=== PATIENT | female | born 1935 | race Caucasian/White ===

== ENCOUNTER 2016-10-23 03:09 | Observation (INO) ==
[2016-10-23] MEDS ORDERED: Naloxone 0.4 MG/ML INJ IVP PRN (08:39)
[2016-10-23] MEDS ORDERED: Acetaminophen 325 MG TABLET PO PRN (08:39)
[2016-10-23 09:08] LABS: Basophils % 0.3 %; Eosinophils # 0.1 K/mcL (0.0-0.6); Eosinophils % 0.4 %; Hematocrit 32.5 % (35.3-44.9); Hemoglobin 10.1 g/dL (11.5-15.4); Immature Granulocytes % 0.6 % (0-4); Lymphocytes # 2.3 K/mcL (0.6-4.6); Lymphocytes % 18.1 %; Mean Corpuscular HGB Conc 31.1 g/dL (31.6-35.5); Mean Corpuscular Hemoglobin 25.8 pg (28.0-33.3); Mean Corpuscular Volume 83.1 fL (83.0-100.0); Mean Platelet Volume 11.1 fL (9.4-12.4); Monocytes # 1.2 K/mcL (0.0-1.3); Monocytes % 9.4 %; Platelet Count 246 K/mcL (140-400); Red Blood Count 3.91 M/mcL (3.82-4.97); Segmented Neutrophils % 71.2 %
[2016-10-23] MEDS ORDERED: 0.9 % Sodium Chloride 1,000 ML IVC SCH (09:15)
[2016-10-23 09:18] LABS: INR 1.1; Prothrombin Time 12.4 Seconds (9.4-12.1)
[2016-10-23 09:21] LABS: Activated Partial Thrombo Time 26.9 Seconds (26.0-36.0)
[2016-10-23 09:22] LABS: Albumin 2.6 g/dL (3.5-5.0); Albumin/Globulin Ratio 0.7 (1.1-2.2); Bilirubin,Total 0.5 mg/dL (0.2-1.2); Chol/HDL Ratio 3.8 (0-4.9); Globulin 3.7 g/dL (2.4-3.5); Magnesium 1.8 mg/dL (1.6-2.6); Phosphorous 3.3 mg/dL (2.3-4.7); Total Protein 6.3 g/dL (6.0-8.3)
--- NOTE | 2016-10-23 09:26 | Internal Med History&Physical ---
<HerreraDomingo - Last Filed: 10/23/16 11:50> Date of Encounter: 10/23/16 Time of Encounter: 07:30 Assessment and Plan (1) Stroke Current visit: Yes Status: Acute Assess: Mrs. Contreras is a 80 year old female who presents from [facility] in [facility] with chief complaint of right-sided weakness and possible stroke. Patient has a lengthy cardiac history consisting of 7 strokes, 1 NE, and triple bypass surgery with placement of two stents. Patient reports she has been experiencing right-sided weakness for the past week and when symptoms worsened her daughter took her to [facility] for evaluation. Hospital Hospital transfer took place today (10/23/16). Patient also states she occasionally has a feeling of pressure in her left arm that does not radiate to her neck. Mrs. Contreras also states she has been having double vision for the past 6 months. She reports occasional dizziness. Plan: DVT prophylaxis ordered Continue patient's aspirin therapy at 325 mg oral once a day Continuous cardiac monitoring ordered Continuous pulse oximetry ordered Monitor patient's vital signs Monitor patient for signs of neurological decline and/or stroke symptoms Qualifiers: CVA mechanism: unspecified Qualified Code(s): I63.9 - Cerebral infarction, unspecified (2) Generalized weakness Current visit: Yes Status: Acute Assess: Patient presents with chief complain of generalized weakness, primarily right- sided in nature due to possible stroke. She has history of several previous strokes. Plan: Bed rest ordered Falls precautions ordered Up with assist only ordered PT consult ordered OT consult ordered Certified Art Therapist consult ordered to evaluate patient's home status as she currently lives alone Monitor patient and patient's vital signs (3) Diabetes 1.5, managed as type 1 Current visit: Yes Status: Chronic Assess: Patient presents with chronic history of diabetes type 1. Plan: Blood glucose monitoring ordered Diabetic diet ordered Wound care ordered for decubitus ulcer located on patient's right ball of foot Hold patient's Glipizide Continue Lantus 50 units subcutaneous Correction scale low-dose ordered Hypoglycemia protocol ordered A1C ordered (4) Hypertension Current visit: Yes Status: Chronic Assess: Impression presents with chronic history of hypertension. Plan: Continue patient's aspirin therapy Continue patient's Lisinopril Continue patient's Norvasc Monitor patient's vital signs Qualifiers: Hypertension type: essential hypertension Qualified Code(s): I10 - Essential (primary) hypertension (5) Hyperlipemia Current visit: Yes Status: Chronic Assess: Patient presents with history of chronic hyperlipidemia. Plan: Continue patient's Atorvastatin Lipid panel ordered Qualifiers: Hyperlipidemia type: unspecified Qualified Code(s): E78.5 - Hyperlipidemia , unspecified (6) GERD (gastroesophageal reflux disease) Current visit: Yes Status: Chronic Assess: Patient presents with chronic history of gastroesophageal reflux disease. Plan: Protonix 40 mg IVP ordered due to contraindication of Prilosec and Clopidogrel Qualifiers: Esophagitis presence: without esophagitis Qualified Code(s): K21.9 - Gastro -esophageal reflux disease without esophagitis (7) Renal disease Current visit: No Status: Chronic Assess: Patient presents with history of chronic renal disease, stage IV (GFR=28). Plan: Renal diet ordered Nutrition consult ordered Continue Lasix Monitor I&O ordered (8) DVT prophylaxis Current visit: Yes Status: Acute Assess: Patient to be placed on DVT prophylaxis due to hx of CVA, bed rest, and inpatient status. Plan: Lovenox 30 mg SQ 0700 ordered due to reduced renal function Internal Medicine - H&P: HPI Chief complaint: Right-Sided Weakness/Possible Stroke Admitted From: Hospital to Hospital Transfer Plans for Post Hospital Care: Home History of present illness: Mrs. Contreras is a 80 year old female who presents from [facility] in [facility] with chief complaint of right-sided weakness and possible stroke. Patient has a lengthy cardiac history consisting of 7 strokes, 1 NE, and triple bypass surgery with placement of two stents. Patient reports she has been experiencing right-sided weakness for the past week and when symptoms worsened her daughter took her to [facility] for evaluation. Hospital Hospital transfer took place today (10/23/16). Patient also states she occasionally has a feeling of pressure in her left arm that does not radiate to her neck. Mrs. Contreras also states she has been having double vision for the past 6 months. She reports occasional dizziness but denies headaches, nausea, vomiting, presyncope, or syncopal episodes. Upon examination , patient exhibits generalized weakness bilaterally with noticeable and more prominent weakness of her right upper and lower extremities. Patient states she has fallen 12 times within the past year with the latest episode being 3 months ago. She states these are primarily caused by loss of balance. To Ben states she currently lives home alone and ambulates using a walker, cane, or 4 wheeled walker with hand brake. 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 Patient did not require chemotherapy or radiation. Mrs. Contreras will be admitted as observation with orders for stat EKG, CBC, carotid duplex imaging bilaterally, continuous cardiac monitoring, continuous pulse ox monitoring, continuation of her home meds. Consults for social media marketing manager, physical therapy, and occupational therapy have been placed. Patient to be monitored closely. Past Med Surg Social Fam HX - Past Medical History Source: patient Medical history: arthritis, cancer (Uterine), coronary artery disease, CVA, diabetes (Including diabetic neuropathy), hyperlipidemia, hypertension, renal disease (Stage IV (GFR=28)), other (Arthritis) Psychiatric history: anxiety, depression - Past Surgical History Surgical History: carotid endarterectomy (Left), cholecystectomy, coronary bypass (CABG) (Triple with placement of two stents), hysterectomy, orthopedic, other (Right foot x2), other (Tubal ligation) - Social History Smoking Status: Former smoker Smokeless Tobacco Status: No Alcohol use: none Drug use: none Occupational status: retired Current living situation: Home - Independent Activity Level: Independent ambulation, Uses cane/walker Recent Out of Country Travel Within the Last 8 Weeks: No Exposure or Possible Exposure to Illness During Travel: No - Family History Mother Race: Family Member Ethnicity: Non- Living Status: Age at : 60 Cause of : Cancer Hx Family Cancer: Yes Hx Family Endocrine Disorder: Yes (DM) Father Race: Family Member Ethnicity: Non- Living Status: Age at : 63 Cause of : NE Hx Family Cardiac Disorders: Yes (NE, HD) Brother Race: Family Member Ethnicity: Non- Living Status: Age at : 55 Cause of : NE Hx Family Cardiac Disorders: Yes (HD) Hx Family Cancer: Yes Sister Race: Family Member Ethnicity: Non- Living Status: Still Living Hx Family Endocrine Disorder: Yes (DM) Internal Medicine - H&P: Meds Amlodipine [Norvasc] 2.5 mg PO DAILY 10/23/16 [History] Atorvastatin Calcium [Lipitor] 80 mg PO DAILY 10/23/16 [History] Carvedilol [Coreg] 25 mg PO BID 10/23/16 [History] Clopidogrel [Plavix] 75 mg PO DAILY 10/23/16 [History] Furosemide [Lasix] 40 mg PO BID 10/23/16 [History] Gabapentin [Neurontin] 300 mg PO TID 10/23/16 [History] GlipiZIDE [Glipizide] 30 mg PO BID 10/23/16 [History] Insulin Glargine [Lantus] 50 units SQ HS 10/23/16 [History] Isosorbide MONOnitrate [Isosorbide Mononitrate] 30 mg PO DAILY 10/23/16 [History ] Lisinopril [Zestril] 10 mg PO BID 10/23/16 [History] Nitroglycerin [Nitrostat] 0.4 mg SL PRN PRN 10/23/16 [History] Nystatin Cream [Mycostatin Cream] 1 appl TP TID 10/23/16 [History] Omeprazole [PriLOSEC] 20 mg PO DAILY 10/23/16 [History] Allergies codeine Allergy (Verified 10/23/16 08:48) See Comments Erythromycin Base Allergy (Verified 10/23/16 08:48) See Comments All Systems PM: A 10-system review of systems was performed and is negative for pertinent findings except as documented above in the HPI. - Constitutional Constitutional: as per HPI, falls, weakness (Generalized with prominence on right side) - EENT Eyes: as per HPI, other visual disturbances (Patient reports double vision over past 6 months) Ears: no ear discharge, no ear pain, no tinnitus Nose, mouth and throat: no dysphagia, no nasal discharge, no neck pain, no sore throat - Breasts Breasts: as per HPI - Cardiovascular Cardiovascular ROS IM: no chest pain, no diaphoresis, no dyspnea, no lightheadedness, no palpitations, no syncope - Respiratory Respiratory: no cough, no dyspnea, no wheezing, no excessive phlegm production - Gastrointestinal Gastrointestinal: diarrhea (Patient reports every other BM as diarrhea), no abdominal pain, no hematemesis, no hematochezia, no melena, no nausea, no vomiting - Genitourinary Genitourinary: as per HPI, urinary incontinence, urinary urgency, no change in urinary stream, no dysuria, no flank pain, no hematuria Menstruation: as per HPI, post hysterectomy - Musculoskeletal Musculoskeletal ROS IM: as per HPI, muscle weakness - Integumentary Integumentary IM: skin ulcer (Decubitus ulcer approximately 1" on right ball of foot. Patient reports she has been receiving wound care for this. Wound contains black eschar but appears to be healing) - Neurological Neurological ROS: as per HPI, frequent falls, lack of coordination, memory loss (Patient reports memory loss due to multiple strokes), weakness - Psychiatric Psychiatric: anxiety (Patient reports being anxious from the loss of her 19 year -old grandson, son, and within the past year), depression (Patient reports being depressed from the loss of her 19 year-old grandson, son, and within the past year) - Endocrine Endocrine IM: as per HPI - Hematologic/Lymphatic Hematologic/Lymphatic: no easy bruising - Allergic/Immunologic Allergic/Immunologic: as per HPI - Constitutional Vitals: Temp Pulse Resp BP Pulse Ox 99.5 F 72 16 102/65 99 10/23/16 07:56 10/23/16 07:56 10/23/16 07:56 10/23/16 07:56 10/23/16 07:56 General appearance: Present: cooperative, A&O X 3, no acute distress, obese, answers questions appropriately - Head Head exam: Present: atraumatic, normocephalic - Eye Eye exam: Present: PERRL, conjuntiva pink, sclera anicteric Pupils: Present: PERRL - ENT ENT exam: Present: mucous membranes dry, normal exam, normal external ear exam - Neck Neck exam general surgery: Present: normal inspection, supple, trachea midline. Absent: lymphadenopathy - Respiratory Respiratory exam: Present: CTAB. Absent: accessory muscle use, rales, rhonchi, wheezes - Cardiovascular Cardiovascular exam: Present: RRR, +S1, +S2. Absent: diastolic murmur, gallop, rubs, systolic murmur - GI/Abdominal GI/Abdominal exam: Present: normal bowel sounds, soft, no peritoneal signs. Absent: distended, tenderness - Rectal Rectal exam: Present: deferred - Additional comments: exam deferred. - Extremities Exam Extremities exam: Present: normal capillary refill Additional comments: Patient has palpable pulses in upper and lower extremities with diminished pulses in lower extremities. - Back Exam Back exam: Present: normal inspection - Neurological Exam Neurological exam: Present: alert, oriented X3 Additional comments: Mrs. Contreras exhibits generalized weakness bilaterally of upper and lower extremities on neurological exam with noticeable strength deficit on right upper and lower extremity. - Psychiatric Psychiatric exam: Present: depressed, normal affect - Skin Skin exam: Present: dry, intact (With the exception of decubitus ulcer located on right ball of foot) Internal Med - H&P Results - Labs CBC & Chem 7: 10/23/16 08:59 10/23/16 08:59 Labs: Short CBC 10/23/16 Range/Units 08:59 WBC 12.6 H (4.3-11.1) K/mcL Hgb 10.1 L (11.5-15.4) g/dL Hct 32.5 L (35.3-44.9) % Plt Count 246 (140-400) K/mcL Neutrophils # 9.0 H (1.6-8.9) K/mcL - EKG Data -: EKG Interpreted by Myself EKG shows normal: sinus rhythm - EKG Data Prior EKG available for review: no EKG comments: 10/23/16 09:46 EKG taken at [facility] dated 10/23/16 shows sinus rhythm, LVH with secondary repolarization abnormality, inferior infarct (old), and anterior Q waves possibly due to LVH. - Diagnostic Studies CT scan - head Additional comments: CT of head without contrast taken at [facility] and dated 10/23/16 shows: Brain: Cerebral atrophy with compensatory dilation of the ventricles. Periventricular white matter hypoattenuation most likely reflects chronic small vessel ischemic change. No hemorrhage. Ventricles: See above Bones/joints: Unremarkable. No acute fracture. Soft tissues: Unremarkable. Sinuses: Unremarkable as visualized. No acute sinusitis. Mastoid air cells: Unremarkable as visualized. No mastoid effusion. Overall impression: No acute intracranial findings. <Roberto Asencio - Last Filed: 10/23/16 17:07> Date of Encounter: 10/23/16 Internal Medicine - H&P: HPI History of present illness: Ms. Contreras is a 80 year old female All Systems PM: A 10-system review of systems was performed and is negative for pertinent findings except as documented above in the HPI. - Constitutional Vitals: Temp Pulse Resp BP Pulse Ox 98.5 F 76 15 151/82 98 10/23/16 15:00 10/23/16 15:00 10/23/16 15:00 10/23/16 15:00 10/23/16 15:00 Internal Med - H&P Results - Labs CBC & Chem 7: 10/23/16 08:59 10/23/16 08:59 Labs: Short CBC 10/23/16 Range/Units 08:59 WBC 12.6 H (4.3-11.1) K/mcL Hgb 10.1 L (11.5-15.4) g/dL Hct 32.5 L (35.3-44.9) % Plt Count 246 (140-400) K/mcL Neutrophils # 9.0 H (1.6-8.9) K/mcL BMP 10/23/16 08:59 Sodium 139 Potassium 4.0 Chloride 104 Carbon Dioxide 27 BUN 40 H Creatinine 1.74 H Glucose 227 H Calcium 8.0 L Cardiac Enzymes 10/23/16 10/23/16 Range/Units 08:59 14:39 Troponin I 0.02 0.02 (0-0.03) ng/mL Liver Function 10/23/16 Range/Units 08:59 Total Bilirubin 0.5 (0.2-1.2) mg/dL AST 10 (5-34) Units/L ALT 7 (0-55) Units/L Alkaline Phosphatase 58 (38-126) Units/L Albumin 2.6 L (3.5-5.0) g/dL - Attending Attestation I examined this patient and my medical decision-making was reviewed with the Advanced Practice Nurse. I agree with the documented findings, disposition and treatment plan as described except to the extent set forth below. danielle seen and examined with the BRICKLAYER SEWER. 80 ur old woman brought to ED , transferred from [facility] for concern of b/l lower leg weakness , normally mobile on a 4 leg walker. weakness is chronic, has h/o multiple strokes in the past, since last few days there is worsening of the weakness more on the right leg. CT head is neg for any acute hemorrhage or infarct. she has no other focal neuro defecits and is relatively stable. Exam has 2/5 power on right leg and 3/5 on left leg with intact sensation. the weakness is probably an exacerbation of chronic weakness as a result of debilitation, mulitple co -morbids and decreased functional status. will order PT/OT consult for now, if worsenig neuro status, may consider MRI brain. danielle will need social work consult for HH at least as she refuses to go to rehab or NH.
[2016-10-23] MEDS ORDERED: Nitroglycerin 0.4 MG TAB.SUBL SL PRN (10:19)
[2016-10-23] MEDS ORDERED: *HR* Dextrose 50 % in Water (Syg) 50 ML SYRINGE IVP PRN (11:27)
[2016-10-23] MEDS ORDERED: Dextrose Gel 15 GM PO PRN ×2 (11:27)
[2016-10-23] MEDS ORDERED: D5% in Water 1,000 ML IVC PRN (11:27)
[2016-10-23] MEDS ORDERED: Insulin LISPRO 300 UNITS/3 ML VIAL SQ ONE (11:42)
[2016-10-23] MEDS: Insulin LISPRO 300 UNITS/3 ML VIAL SQ SCH ×3 (12:01→20:35)
[2016-10-23 13:10] LABS: Hemoglobin A1C 11.6 %
[2016-10-23] MEDS: Gabapentin 300 MG CAPSULE PO SCH ×2 (14:58→20:34)
[2016-10-23] MEDS: Nystatin Cream 15 GM TUBE TP SCH ×2 (14:59→21:48)
[2016-10-23 17:44] LABS: Bilirubin,Urine Negative (Negative); Blood,Urine Trace (Negative); Clarity,Urine Cloudy (Clear); Color,Urine Yellow (Yellow); Glucose,Urine (UA) 250 mg/dL (Normal); Ketones,Urine Negative (Negative); Leukocyte Esterase,Urine Moderate (Negative); Nitrite,Urine Negative (Negative); PH,Urine 5.5 pH Units (5.0-8.0); Protein,Urine Negative (Neg-Trace); Specific Gravity,Urine 1.019 (1.010-1.025); Urobilinogen,Urine Normal (Normal)
[2016-10-23 17:46] LABS: Hyaline Casts,Urine None Seen per lpf (None-Few); Squamous Epithelial Cell,Urine Many per lpf (None-Few); WBC,Urine 15-30 per hpf (0-3)
[2016-10-23 17:55] LABS: RBC,Urine 0-3 per hpf (0-3)
[2016-10-23 17:56] LABS: Bacteria,Urine Moderate per hpf (None-Few); Renal Epithelial Cells,Urine Few per hpf (None-Few)
--- NOTE | 2016-10-23 18:06 | Carotid Imaging Report ---
Carotid Duplex Patient Name:Mar Contreras Order Number:[id number] Procedure Date:10/23/2016 Date:8Age:80 yrs Gender:Female Location:[facility] Room #: 3B46 Benefit Director:Hector Chaney RDMARTINEZ Referring MD:Domingo Silverman, [employer] customer sales consultant:None Reading MD:Maxwell Paredes MD , FACS Primary Indications:History of strokes Risk Factors Yes/No Hypertension Yes Diabetes Yes Hypercholesterolemia Yes Hx of CVA Yes Impressions: Findings: Left carotid system is essentially normal. Findings: Right carotid system has nonstenotic plaque. Recommendations: After imaging the patient returned to their room. Findings Carotid Duplex: Right: The right proximal common carotid artery has a PSV of 73 cm/s and a EDV of 14 cm/s. The right mid common carotid artery has a PSV of 59 cm/s and a EDV of 11 cm/s. The right distal common carotid artery has a PSV of 72 cm/s and a EDV of 19 cm/s. There is nonstenotic plaque in the right bifurcation with a PSV of 60 cm/s and a EDV of 11 cm/s. There is smooth calcified plaque. There is nonstenotic plaque in the right proximal internal carotid artery with a PSV of 88 cm/s and a EDV of 25 cm/s. There is smooth calcified plaque. The right mid internal carotid artery has a PSV of 77 cm/s and a EDV of 28 cm/s. The right distal internal carotid artery has a PSV of 85 cm/s and a EDV of 27 cm/s. There is nonstenotic plaque in the right eca with a PSV of 103 cm/s and a EDV of 12 cm/s. The right vertebral artery has a PSV of 36 cm/s and a EDV of 6 cm/s. Left: The left proximal common carotid artery has a PSV of 86 cm/s and a EDV of 21 cm/s. The left mid common carotid artery has a PSV of 82 cm/s and a EDV of 19 cm/s. The left distal common carotid artery has a PSV of 68 cm/s and a EDV of 22 cm/s. The left bifurcation has a PSV of 58 cm/s and a EDV of 14 cm/s. The left proximal internal carotid artery has a PSV of 80 cm/s and a EDV of 23 cm/s. The left mid internal carotid artery has a PSV of 73 cm/s and a EDV of 24 cm/s. The left distal internal carotid artery has a PSV of 61 cm/s and a EDV of 23 cm/s. The left eca has a PSV of 90 cm/s and a EDV of 12 cm/s. The left vertebral artery has a PSV of 50 cm/s and a EDV of 21 cm/s. Carotid Results Right PSV EDV Assessment Proximal CCA 73 14 Normal Mid CCA 59 11 Normal Distal CCA 72 19 Normal Bifurcation 60 11 Non Stenotic Plaque Proximal ICA 88 25 Non Stenotic Plaque Mid ICA 77 28 Normal Distal ICA 85 27 Normal ECA 103 12 Non Stenotic Plaque Vertebral Artery 36 6 Normal Left PSV EDV Assessment Proximal CCA 86 21 Normal Mid CCA 82 19 Normal Distal CCA 68 22 Normal Bifurcation 58 14 Normal Proximal ICA 80 23 Normal Mid ICA 73 24 Normal Distal ICA 61 23 Normal ECA 90 12 Normal Vertebral Artery 50 21 Normal Ratio's Right ICA/CCA Ratio: 1.49 ICA/CCA Values: 88/59 Left ICA/CCA Ratio: 0.96 ICA/CCA Values: 80/82 Updated by Maxwell Paredes MD, FACS on 10/23/2016 5:58:49 PM Maxwell Paredes MD electronically signed on 10/23/2016 5:59:18 PM with status of Final
[2016-10-23] MEDS: Furosemide 40 MG TABLET PO SCH (20:33)
[2016-10-23] MEDS: Insulin DETEMIR 100 UNIT/ML X5UNITS SQ SCH (20:35)
[2016-10-23] MEDS ORDERED: INSULIN GLARGINE 50 UNIT SQ SCH (21:00)
[2016-10-23] MEDS: Ondansetron ODT 4 MG TAB.RAPDIS SL PRN (22:58)
[2016-10-24] MEDS ORDERED: *HR* Enoxaparin 30 MG/0.3 ML SYRINGE SQ SCH (07:00)
[2016-10-24] MEDS: Pantoprazole 40 MG VIAL IVP SCH (08:50)
[2016-10-24] MEDS: Insulin LISPRO 300 UNITS/3 ML VIAL SQ SCH ×4 (08:50→21:16)
[2016-10-24] MEDS: Nystatin Cream 15 GM TUBE TP SCH ×3 (08:51→21:15)
[2016-10-24] MEDS: Isosorbide MONOnitrate (24 HR) 30 MG TAB.ER.24H PO SCH (08:51)
[2016-10-24] MEDS: amLODIPine 5 MG TABLET PO SCH (08:51)
[2016-10-24] MEDS: Gabapentin 300 MG CAPSULE PO SCH ×3 (08:51→21:15)
[2016-10-24 09:01] LABS: Basophils # 0.1 K/mcL (0.0-0.2); Basophils % 0.5 %; Eosinophils # 0.2 K/mcL (0.0-0.6); Eosinophils % 1.6 %; Hematocrit 35.5 % (35.3-44.9); Hemoglobin 11.2 g/dL (11.5-15.4); Immature Granulocytes % 0.3 % (0-4); Immature Platelets 4.2 % (1.1-6.1); Lymphocytes # 2.2 K/mcL (0.6-4.6); Lymphocytes % 21.2 %; Mean Corpuscular HGB Conc 31.5 g/dL (31.6-35.5); Mean Corpuscular Hemoglobin 26.2 pg (28.0-33.3); Mean Corpuscular Volume 82.9 fL (83.0-100.0); Mean Platelet Volume 11.1 fL (9.4-12.4); Monocytes # 1.1 K/mcL (0.0-1.3); Monocytes % 10.4 %; Neutrophils # 6.9 K/mcL (1.6-8.9); Platelet Count 257 K/mcL (140-400); Red Blood Count 4.28 M/mcL (3.82-4.97)
[2016-10-24] MEDS: Furosemide 40 MG TABLET PO SCH ×2 (09:05→21:15)
[2016-10-24 09:11] LABS: Calcium 8.7 mg/dL (8.6-10.8); Potassium 4.4 mEq/L (3.5-4.5)
--- NOTE | 2016-10-24 18:32 | Internal Med Progress Note ---
Date of Encounter: 10/24/16 Time of Encounter: 09:40 - Assessment and plan (1) Generalized weakness Current Visit: Yes Status: Acute Assessment and plan: Patient was admitted through the emergency department yesterday from [facility] in [place] with chief complaint of right-sided weakness and possible stroke. Patient had lengthy cardiac history and also a history of 7 MIs. She reports that she has been explained to right-sided weakness for at least a week, her symptoms became worse yesterday. Patient also told ER staff that she occasionally has a feeling of pressure in her left arm that does not radiate to her neck. She says that she has been having double vision for the past 6 months and occasional dizziness. Patient is deconditioned, she lives at home alone. She has right lower extremity deficit from prior stroke and drags her leg behind her while she is using her walker. She has been seeing wound care for a wound on her foot from dragging. She said that she had a callus which she picked. Patient's labs are within normal limits. She also does not appear to have right-sided weakness. Her head CT was negative. And her carotids were negative and unremarkable. Her grasps are strong and equal bilaterally she is able to hold her leg up against resistance and is able to push her legs down to the bed against resistance. She is able to follow commands, her pupils are equal and reactive to light and accommodation. Her speech is clear her facial movements are symmetrical. She is able to move herself in the bed. Patient is being treated for urinary tract infection with Rocephin. This and deconditioning could very well be part of what is causing weakness. Urine cultures are pending. As recommended by physical therapy the patient go to rehabilitation for weakness. Patient is refusing an insistent that she goes home. Despite multiple transportation and level of functioning issues within the family, patient insists that she has enough support to stay home by herself. She does ambulate with a cane, however she drags her leg when she walks. She is incontinent of urine and unable to clean herself in the shower. She will be accepting of home health at this time. 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 Patient has contractures and deconditioning, does not appear to have neurological deficits from CVA. 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 Patient appears to be neurologically intact as stated above. DVT prophylaxis Aspirin 325 daily Continue cardiac monitoring Continue continuous pulse ox Monitor vital signs and patient condition. Qualifiers: CVA mechanism: unspecified Qualified Code(s): I63.9 - Cerebral infarction, unspecified (3) DVT prophylaxis Current Visit: Yes Status: Acute Assessment and plan: Lovenox subcutaneous daily. Patient also on Plavix. (4) Hypertension Current Visit: Yes Status: Chronic Assessment and plan: Chronic. Continue home medication. Monitor vital signs. Qualifiers: Hypertension type: essential hypertension Qualified Code(s): I10 - Essential (primary) hypertension (5) GERD (gastroesophageal reflux disease) Current Visit: Yes Status: Chronic Assessment and plan: Chronic. Continue home medications. Qualifiers: Esophagitis presence: without esophagitis Qualified Code(s): K21.9 - Gastro -esophageal reflux disease without esophagitis (6) Renal disease Current Visit: No Status: Chronic Assessment and plan: Chronic. Avoid NSAIDs. Avoid nephrotoxins. Monitor vital signs Creatinine 1.41. Improving from admission. (7) Hyperlipemia Current Visit: Yes Status: Chronic Assessment and plan: Chronic. Continue home medications. Within normal limits with current regimen Qualifiers: Hyperlipidemia type: unspecified Qualified Code(s): E78.5 - Hyperlipidemia , unspecified (8) UTI (urinary tract infection) Current Visit: Yes Status: Acute Assessment and plan: Patient is being treated for urinary tract infection. There is moderate bacteria and moderate leukocyte esterase. Patient is initially being treated with Rocephin 1 g every 24 hours IV until culture and sensitivity is available. 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 This is near baseline, however slightly decreased from prior. Sliding scale insulin Accu-Cheks before meals at bedtime Diabetic diet life educator - Time Spent With Patient less than 15 minutes - Subjective Interval history: Patient presented to the emergency room at [facility] in [place] yesterday with complaint of weakness. She reported that weakness is primarily on the right side. Today during evaluation, patient has no noticeable deficits. Her grasps were strong and equal, facial movements were symmetrical, she could lift and push her legs on and off the bed with and against resistance. Her foot press pole were strong and equal bilaterally ureters speech is clear, PERRLA, she is able to follow commands. It is been recommended by PT that patient go to rehabilitation for physical therapy. Patient is resistant. Social workers on board. Patient has many social needs such as she is incontinent and unable to care for herself at home, she does get Meals on Wheels but only Sunday through Sunday. She does seem to have neighbors who care for her and look out for her. - Constitutional Vitals: Temp Pulse Resp BP Pulse Ox 97.8 F 67 17 106/64 98 10/24/16 14:57 10/24/16 14:57 10/24/16 14:57 10/24/16 14:57 10/24/16 14:57 General appearance: Present: cooperative, A&O X 3, pleasant, no acute distress, obese, answers questions appropriately - Head Head exam: Present: normal inspection - Eye Eye exam: Present: normal appearance, conjuntiva pink - ENT ENT exam: Present: mucous membranes moist, normal exam - Neck Neck exam general surgery: Present: normal inspection. Absent: lymphadenopathy , tenderness - Respiratory Respiratory exam: Present: CTAB. Absent: rales, respiratory distress, rhonchi, stridor, wheezes - Cardiovascular Cardiovascular exam: Present: RRR, +S1, +S2. Absent: diastolic murmur, systolic murmur - GI/Abdominal GI/Abdominal exam: Present: normal bowel sounds. Absent: distended, hepatomegaly, tenderness - Extremities Exam Extremities exam: Present: warm, radial pulses palpable and symetrical. Absent : pedal edema, tenderness - Neurological Exam Neurological exam: Present: alert, oriented X3, no focal deficits, strengths equal and symetr throughout. Absent: facial droop, speech deficit Internal Medicine: Result - Labs CBC & Chem 7: 10/24/16 08:43 10/24/16 08:43 Labs: Short CBC 10/24/16 Range/Units 08:43 WBC 10.5 (4.3-11.1) K/mcL Hgb 11.2 L (11.5-15.4) g/dL Hct 35.5 (35.3-44.9) % Plt Count 257 (140-400) K/mcL Neutrophils # 6.9 (1.6-8.9) K/mcL BMP 10/24/16 08:43 Sodium 139 Potassium 4.4 Chloride 105 Carbon Dioxide 26 BUN 35 H Creatinine 1.41 H Glucose 352 H Calcium 8.7 Cardiac Enzymes 10/23/16 Range/Units 20:22 Troponin I 0.01 (0-0.03) ng/mL - ABG Interpretation ABG results: PT/INR, D-dimer PT 12.4 Seconds (9.4-12.1) H 10/23/16 08:59 Consult Discharge Plan - Plan Referrals: Trevor Talavera, [employer] [Advanced Practice Nurse] -
[2016-10-24] MEDS: Insulin DETEMIR 100 UNIT/ML X5UNITS SQ SCH (21:15)
[2016-10-24] MEDS: Ondansetron ODT 4 MG TAB.RAPDIS SL PRN (21:15)
[2016-10-25 05:21] LABS: Basophils % 0.4 %; Eosinophils # 0.3 K/mcL (0.0-0.6); Eosinophils % 3.2 %; Hematocrit 31.6 % (35.3-44.9); Hemoglobin 9.9 g/dL (11.5-15.4); Immature Granulocytes % 0.3 % (0-4); Immature Platelets 5.3 % (1.1-6.1); Lymphocytes # 2.3 K/mcL (0.6-4.6); Lymphocytes % 22.4 %; Mean Corpuscular HGB Conc 31.3 g/dL (31.6-35.5); Mean Corpuscular Hemoglobin 26.3 pg (28.0-33.3); Mean Corpuscular Volume 83.8 fL (83.0-100.0); Mean Platelet Volume 11.2 fL (9.4-12.4); Monocytes % 9.4 %; Neutrophils # 6.7 K/mcL (1.6-8.9); Platelet Count 239 K/mcL (140-400); Red Blood Count 3.77 M/mcL (3.82-4.97); Red Cell Distribution Width 14.8 % (11.5-14.5); Segmented Neutrophils % 64.3 %
[2016-10-25 05:32] LABS: Calcium 8.2 mg/dL (8.6-10.8); Potassium 4.4 mEq/L (3.5-4.5)
[2016-10-25] MEDS ORDERED: *HR* Enoxaparin 40 MG/0.4 ML SYRINGE SQ SCH (06:00)
[2016-10-25] MEDS: Insulin LISPRO 300 UNITS/3 ML VIAL SQ SCH ×2 (07:58→12:41)
[2016-10-25] MEDS: amLODIPine 5 MG TABLET PO SCH (07:59)
[2016-10-25] MEDS: Furosemide 40 MG TABLET PO SCH (07:59)
[2016-10-25] MEDS: Isosorbide MONOnitrate (24 HR) 30 MG TAB.ER.24H PO SCH (07:59)
[2016-10-25] MEDS: Gabapentin 300 MG CAPSULE PO SCH (07:59)
[2016-10-25] MEDS: Pantoprazole 40 MG VIAL IVP SCH (08:00)
[2016-10-25] MEDS: Nystatin Cream 15 GM TUBE TP SCH (08:00)
[2016-10-25 11:24] VITALS: BP 103/63
--- NOTE | 2016-10-25 13:35 | Discharge Summary ---
Date of Encounter: 10/25/16 Time of Encounter: 13:28 - Discharge Diagnosis (1) Generalized weakness Priority: Primary Status: Acute (2) Hypertension Priority: Secondary Status: Chronic Qualifiers: Hypertension type: essential hypertension Qualified Code(s): I10 - Essential (primary) hypertension (3) Hyperlipemia Priority: Secondary Status: Chronic Qualifiers: Hyperlipidemia type: unspecified Qualified Code(s): E78.5 - Hyperlipidemia , unspecified (4) UTI (urinary tract infection) Priority: Primary Status: Acute Qualifiers: Urinary tract infection type: acute cystitis Hematuria presence: without hematuria Qualified Code(s): N30.00 - Acute cystitis without hematuria - Discharge Medications Prescriptions: Sulfamethoxazole/Trimeth DS [Bactrim DS] 1 each PO DAILY #5 tablet Home Medications: Atorvastatin Calcium [Lipitor] 80 mg PO DAILY 10/23/16 [History] Carvedilol [Coreg] 25 mg PO BID 10/23/16 [History] Clopidogrel [Plavix] 75 mg PO DAILY 10/23/16 [History] Furosemide [Lasix] 40 mg PO BID 10/23/16 [History] Gabapentin [Neurontin] 300 mg PO TID 10/23/16 [History] Insulin Glargine [Lantus] 50 units SQ HS 10/23/16 [History] Isosorbide MONOnitrate [Isosorbide Mononitrate] 30 mg PO DAILY 10/23/16 [History ] Lisinopril [Zestril] 10 mg PO BID 10/23/16 [History] Nitroglycerin [Nitrostat] 0.4 mg SL PRN PRN 10/23/16 [History] Nystatin Cream [Mycostatin Cream] 1 appl TP TID 10/23/16 [History] Omeprazole [PriLOSEC] 20 mg PO DAILY 10/23/16 [History] amLODIPine [Norvasc] 2.5 mg PO DAILY 10/23/16 [History] glipiZIDE [Glipizide] 30 mg PO BID 10/23/16 [History] Sulfamethoxazole/Trimeth DS [Bactrim DS] 1 each PO DAILY #5 tablet 10/25/16 [Rx] Allergies/Adverse Reactions: Allergies codeine Allergy (Verified 10/23/16 08:48) See Comments Erythromycin Base Allergy (Verified 10/23/16 08:48) See Comments Procedures/tests Complete & Pending: Procedures Performed prior 72 hours Category Date Time Status ECG 12 lead ECG [ECG] Stat Y 10/23/16 08:39 Ordered EV carotid duplex imaging BI Routine Y 10/23/16 08:46 Completed Date of admission: 10/23/16 04:38 Primary care physician: Mari Coley Consults: 10/23/16 08:43 Consult to Cutting Torch Operator [CONS] Routine Reason for SW Consult: Patient lives alone and has hx of falls, stroke, MO, and lack of assistance for care 10/23/16 08:44 Consult to Occupational Therapy [CONS] Routine Comment: Evaluate, develop and implement POC Reason for Consult: Hx of 7 strokes and 12 falls w/i past year Consult to Physical Therapy [CONS] Routine Comment: Evaluate, develop and implement POC Reason for Consult: Hx of 7 strokes and 12 falls w/i past year 10/23/16 10:00 Consult to Nutrition [CONS] Routine Comment: Cardiac, diabetic, and renal co-mobidities Consulting Provider: NUTRITION Reason for Dietary Consult: Diet Education Other:: Cardiac, diabetic, and renal co-mobidities. Pt. lives alone. 10/23/16 11:27 Consult to Geography Teacher [CONS] Routine Comment: Reason for Consult: BG runs 225 at home per patient Discharging clinician: Roberto Asencio Anticipated date of discharge: 10/25/16 - Patient Status Disposition: Home Health Service Condition: Fair Functional capacity at discharge: independent ambulation Overall status at discharge: patient is back to baseline - Discharge Instructions Instructions: Urinary Tract Infection in Women (DC) Follow Up With: aMri Coley [Primary Care Provider] - 11/03/16 1:30 pm - Diet and Activity Activity: as per physical therapy Diet: advance to your usual diet Interval History: Patient was admitted through the emergency department from [facility] in [place] with chief complaint of right-sided weakness and possible stroke. Patient had extensive cardiac history and also a history of 7 MIs. She reports that she had worsening right-sided weakness for at least a week, her symptoms became worse before presentation. seh had no other focal neuro defecits. CT head was negative for any infarct or hemorrhage. Patient is deconditioned, she lives at home alone. She has right lower extremity deficit from prior stroke and drags her leg behind her while she is using her walker. She has been seeing wound care for a wound on her foot from dragging. She said that she had a callus which she picked. Patient's labs are within normal limits. And her carotids were negative and unremarkable. The weakness on exam was noted to be more generalized which somewhat improved with physical therapy. she is able to walk to the bathroom with the walker.HEr multiple co morbids, body habitus and old age with deconditioning could very well be part of what is causing weakness. As recommended by physical therapy the patient go to rehabilitation for weakness. Patient is refusing an insistent that she goes home. Despite multiple transportation and level of functioning issues within the family, patient insists that she has enough support to stay home by herself. She does ambulate with a cane, however she drags her leg when she walks. She is incontinent of urine and unable to clean herself in the shower. She will be accepting of home health at this time.she reports that if not dc she will sgn out AMA. she is dc with HH in stable condition. Hospital course: Ms. Contreras is a 80 year old female Time spent discussing smoking cessation with patient: more than 10 minutes - Time Spent with Patient Total time spent providing and/or coordinating discharge services: Greater than 30 minutes - Constitutional Vitals: Temp Pulse Resp BP Pulse Ox 97.7 F 63 18 103/63 96 10/25/16 11:22 10/25/16 11:22 10/25/16 11:22 10/25/16 11:22 10/25/16 11:22 General appearance: Present: cooperative, A&O X 3, pleasant, no acute distress, obese, answers questions appropriately Exam: - Head Head exam: Present: normal inspection - Eye Eye exam: Present: normal appearance, conjuntiva pink - ENT ENT exam: Present: mucous membranes moist, normal exam - Neck Neck exam general surgery: Present: normal inspection. Absent: lymphadenopathy , tenderness - Respiratory Respiratory exam: Present: CTAB. Absent: rales, respiratory distress, rhonchi, stridor, wheezes - Cardiovascular Cardiovascular exam: Present: RRR, +S1, +S2. Absent: diastolic murmur, systolic murmur - GI/Abdominal GI/Abdominal exam: Present: normal bowel sounds. Absent: distended, hepatomegaly, tenderness - Extremities Exam Extremities exam: Present: warm, radial pulses palpable and symetrical. Absent : pedal edema, tenderness - Neurological Exam Neurological exam: Present: alert, oriented X3, no focal deficits, strengths equal and symetr throughout. Absent: facial droop, speech deficit
--- NOTE | 2016-10-25 13:45 | Physician Discharge Referral ---
Home Health/Hosp Referral Info Transfer to: Home Health Attending Provider: jarocho pantoja - Diagnosis (1) Generalized weakness Status: Acute (2) Hypertension Status: Chronic (3) Hyperlipemia Status: Chronic (4) UTI (urinary tract infection) Status: Acute - Respiratory Orders Smoking Cessation: Smoking cessation has been advised. For more information, call the [place] Tobacco Quit Line at 8-511-ATRC-NOW. - Diet/Nutrition Diet/Nutrition Orders: Regular - Activity Activity Orders: Up ad rivka, Ambulate, Walker - Services Needed Following services are medically necessary services: Nursing, Home Health Aide, Physical Therapy, Occupational Therapy, Med Social Work - Transfer Medications Prescriptions: Sulfamethoxazole/Trimeth DS [Bactrim DS] 1 each PO DAILY #5 tablet Home Medications: Amlodipine [Norvasc] 2.5 mg PO DAILY 10/23/16 [History] Atorvastatin Calcium [Lipitor] 80 mg PO DAILY 10/23/16 [History] Carvedilol [Coreg] 25 mg PO BID 10/23/16 [History] Clopidogrel [Plavix] 75 mg PO DAILY 10/23/16 [History] Furosemide [Lasix] 40 mg PO BID 10/23/16 [History] Gabapentin [Neurontin] 300 mg PO TID 10/23/16 [History] GlipiZIDE [Glipizide] 30 mg PO BID 10/23/16 [History] Insulin Glargine [Lantus] 50 units SQ HS 10/23/16 [History] Isosorbide MONOnitrate [Isosorbide Mononitrate] 30 mg PO DAILY 10/23/16 [History ] Lisinopril [Zestril] 10 mg PO BID 10/23/16 [History] Nitroglycerin [Nitrostat] 0.4 mg SL PRN PRN 10/23/16 [History] Nystatin Cream [Mycostatin Cream] 1 appl TP TID 10/23/16 [History] Omeprazole [PriLOSEC] 20 mg PO DAILY 10/23/16 [History] Sulfamethoxazole/Trimeth DS [Bactrim DS] 1 each PO DAILY #5 tablet 10/25/16 [Rx] Allergies/Adverse Reactions: Allergies codeine Allergy (Verified 10/23/16 08:48) See Comments Erythromycin Base Allergy (Verified 10/23/16 08:48) See Comments Certification: Further, I certify that my clinical findings support that this patient is homebound (i.e. absences from home require considerable and taxing effort and are for medical reasons or orthodox services or infrequently or short duration when for other reasons) because: Homebound Reason: Patient requires assistance of a person or device to safely leave home Attestation: My signature below is to certify that this patient is under my care and that I, or nurse practitioner, or a physician's night assistant working with me, has a face-to -face encounter with this patient.
== END 2016-10-25 15:56 | disposition home health service (06) ==
LOC: 3BNU → 3ANU 10-25 01:36
PROVIDERS: ADMIT Internal Medicine Sleep Medicine; ATTEND Nurse Practitioner Family

== ENCOUNTER 2016-12-26 01:29 | Inpatient (IN) ==
[2016-12-26] MEDS ORDERED: *HR* Morphine 2 MG/ML SYRINGE IVP PRN (08:21)
[2016-12-26] MEDS ORDERED: *HR* OxyCODONE Immed Rel 5 MG TABLET PO PRN (08:21)
[2016-12-26] MEDS ORDERED: Acetaminophen 325 MG TABLET PO PRN (08:21)
[2016-12-26] MEDS ORDERED: Naloxone 0.4 MG/ML INJ IVP PRN (08:21)
[2016-12-26] MEDS ORDERED: Ondansetron 4 MG/2 ML VIAL IVP PRN (08:21)
[2016-12-26] MEDS ORDERED: 0.9 % Sodium Chloride 1,000 ML IVC SCH (08:30)
[2016-12-26] MEDS: Aspirin Enteric Coated 81 MG Tablet PO SCH (08:44)
[2016-12-26] MEDS: amLODIPine 5 MG TABLET PO SCH (08:45)
[2016-12-26] MEDS ORDERED: Dextrose Gel 15 GM PO PRN ×2 (10:05)
[2016-12-26] MEDS ORDERED: D5% in Water 1,000 ML IVC PRN (10:05)
[2016-12-26] MEDS ORDERED: *HR* Dextrose 50 % in Water (Syg) 50 ML SYRINGE IVP PRN (10:05)
[2016-12-26 10:12] LABS: Bilirubin,Urine Small (Negative); Blood,Urine Negative (Negative); Clarity,Urine Cloudy (Clear); Color,Urine Yellow (Yellow); Glucose,Urine (UA) 100 mg/dL (Normal); Ketones,Urine Negative (Negative); Leukocyte Esterase,Urine Small (Negative); Nitrite,Urine Negative (Negative); Protein,Urine Negative (Neg-Trace); Urobilinogen,Urine Normal (Normal)
[2016-12-26 10:15] LABS: Bacteria,Urine None Seen per hpf (None-Few); Hyaline Casts,Urine Few per lpf (None-Few); Squamous Epithelial Cell,Urine Many per lpf (None-Few)
[2016-12-26] MEDS: Insulin LISPRO 300 UNITS/3 ML VIAL SQ SCH ×4 (10:26→21:29)
[2016-12-26 10:28] LABS: RBC,Urine 0-3 per hpf (0-3)
--- NOTE | 2016-12-26 10:31 | Internal Med History&Physical ---
Date of Encounter: 12/26/16 Time of Encounter: 08:00 Assessment and Plan (1) Emesis Current visit: Yes Status: Acute Likely gastroenteritis. Supportive care with IV hydration, when necessary antiemetics. Diet as tolerated. Monitor closely. Patient is noted to have mild leukocytosis, WBC 15 at admission. Check urine reflex culture and microscopy. Qualifiers: Vomiting type: bilious vomiting Nausea presence: with nausea Qualified Code(s): R11.14 - Bilious vomiting (2) Elevated troponin Current visit: Yes Status: Acute Troponin noted to be slightly elevated at 0.07. Repeat troponin is 0.07, flattened adynamic. No new ischemic EKG changes. Continue telemetry monitoring. Check 2-D echocardiogram. Less likely MD. Continue aspirin, Plavix, beta nain. Hold DANUTA inhibitor for now. (3) Essential hypertension Current visit: Yes Status: Chronic Blood pressure noted to be well controlled. Continue Norvasc and Coreg. (4) Diabetes mellitus Current visit: Yes Status: Chronic Noted to be uncontrolled with hemoglobin A1c more than 11% about 2 months ago. Check hemoglobin A1c now. Hold oral hypoglycemics. Continue Accu-Chek blood glucose monitoring with basal bolus insulin regimen. Diabetic diet. 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 Qualifiers: Coronary Disease-Associated Artery/Lesion type: bypass graft [place] vs. transplanted heart: [place] heart Associated angina: without angina Qualified Code(s): I25.810 - Atherosclerosis of coronary artery bypass graft(s) without angina pectoris (6) Anxiety Current visit: Yes Status: Chronic (7) Depression Current visit: Yes Status: Chronic Qualifiers: Depression Type: unspecified Qualified Code(s): F32.9 - Major depressive disorder, single episode, unspecified (8) Stroke Current visit: Yes Status: Chronic History of previous strokes with residual right-sided weakness. Continue physical and occupational therapy after discharge, as before. Qualifiers: CVA mechanism: unspecified Qualified Code(s): I63.9 - Cerebral infarction, unspecified (9) GERD (gastroesophageal reflux disease) Current visit: Yes Status: Chronic Qualifiers: Esophagitis presence: without esophagitis Qualified Code(s): K21.9 - Gastro -esophageal reflux disease without esophagitis (10) Hyperlipemia Current visit: Yes Status: Chronic Qualifiers: Hyperlipidemia type: unspecified Qualified Code(s): E78.5 - Hyperlipidemia , unspecified (11) Chronic kidney disease Current visit: Yes Status: Chronic Serum creatinine noted to be at baseline, 1.7. Continue IV hydration and hold DANUTA inhibitor, sulfonylurea and gabapentin. Qualifiers: Chronic kidney disease stage: stage 3 (moderate) Qualified Code(s): N18.3 - Chronic kidney disease, stage 3 (moderate) Internal Medicine - H&P: HPI Chief complaint: Headache Admitted From: Emergency Dept Plans for Post Hospital Care: Home History of present illness: Ms. Contreras is a 81 year old female with history of CVA, CAD, diabetes, was sent from [facility] emergency room for evaluation of headache, nausea and vomiting. Patient was admitted and discharged from our hospital 2 months ago with acute on chronic right-sided weakness due to old CVA, no new stroke was diagnosed, and patient was recommended to be placed in a rehabilitation facility , which she declined and insisted on being discharged home. She presents today with complaints of occipital headache associated with neck pain, nausea, multiple episodes of nonbloody bilious vomiting and feeling sick. No dizziness, blurred vision, focal weakness or paresthesias. She does have right-sided weakness, tingling and numbness in both her hands and fingers related to previous strokes. No fever, chills, abdominal pain or diarrhea. No chest pain, shortness of breath, palpitations or diaphoresis. She lives alone at home, ambulates with walker, does have home health with visiting nurse and physical therapy services. Labs in the emergency room are essentially normal except troponin 0.07, serum creatinine 1.7, random blood glucose 224, WBC 15 CT head, CT abdomen/pelvis done in the emergency room showed no acute abnormalities. Past Med Surg Social Fam HX - Past Medical History Medical history: arthritis, cancer, coronary artery disease, CVA, diabetes, hyperlipidemia, hypertension, renal disease, other Psychiatric history: anxiety, depression - Past Surgical History Surgical History: carotid endarterectomy, cholecystectomy, coronary bypass (CABG ), hysterectomy, orthopedic, other (Right ankle surgery), other - Social History Smoking Status: Former smoker Packs per day: 0 Smokeless Tobacco Status: No Alcohol use: none Drug use: none Occupational status: disabled Current living situation: Home - Independent Activity Level: Uses cane/walker Recent Out of Country Travel Within the Last 8 Weeks: No - Family History Mother Family Member Ethnicity: Non- Living Status: Hx Family Cancer: Yes Hx Family Endocrine Disorder: Yes (DM) Father Family Member Ethnicity: Non- Living Status: Hx Family Cardiac Disorders: Yes (MD, HD) Brother Family Member Ethnicity: Non- Living Status: Hx Family Cardiac Disorders: Yes (HD) Hx Family Cancer: Yes Sister Family Member Ethnicity: Non- Living Status: Still Living Hx Family Endocrine Disorder: Yes (DM) Internal Medicine - H&P: Meds Atorvastatin Calcium [Lipitor] 80 mg PO DAILY 10/23/16 [History] Carvedilol [Coreg] 25 mg PO BID 10/23/16 [History] Clopidogrel [Plavix] 75 mg PO DAILY 10/23/16 [History] Furosemide [Lasix] 40 mg PO BID 10/23/16 [History] Gabapentin [Neurontin] 300 mg PO TID 10/23/16 [History] Insulin Glargine [Lantus] 50 units SQ HS 10/23/16 [History] Isosorbide MONOnitrate [Isosorbide Mononitrate] 30 mg PO DAILY 10/23/16 [History ] Lisinopril [Zestril] 10 mg PO BID 10/23/16 [History] Nitroglycerin [Nitrostat] 0.4 mg SL PRN PRN 10/23/16 [History] Omeprazole [PriLOSEC] 20 mg PO DAILY 10/23/16 [History] amLODIPine [Norvasc] 2.5 mg PO DAILY 10/23/16 [History] glipiZIDE [Glipizide] 10 mg PO BID 10/23/16 [History] Aspirin [Lo-Dose Aspirin EC] 81 mg PO DAILY 12/26/16 [History] Sertraline [Zoloft] 50 mg PO DAILY 12/26/16 [History] Allergies codeine Allergy (Verified 10/23/16 08:48) See Comments Erythromycin Base Allergy (Verified 10/23/16 08:48) See Comments All Systems PM: A 10-system review of systems was performed and is negative for pertinent findings except as documented above in the HPI. - Constitutional Constitutional: malaise - EENT Eyes: no change in vision, no discharge, no pain, no photophobia Ears: no ear discharge, no ear pain, no tinnitus Nose, mouth and throat: no dysphagia, no nasal discharge, no neck pain, no sore throat - Cardiovascular Cardiovascular ROS IM: no chest pain, no diaphoresis, no dyspnea, no lightheadedness, no palpitations, no syncope - Respiratory Respiratory: no cough, no dyspnea, no wheezing, no excessive phlegm production - Gastrointestinal Gastrointestinal: nausea, vomiting - Genitourinary Genitourinary: urinary incontinence, no change in urinary stream, no dysuria, no flank pain, no hematuria - Musculoskeletal Musculoskeletal ROS IM: back pain, neck pain, numbness, tingling - Integumentary Integumentary IM: no rash, no unusual bruising - Neurological Neurological ROS: headache(s), numbness, tingling, weakness - Hematologic/Lymphatic Hematologic/Lymphatic: no easy bruising - Constitutional Vitals: Temp Pulse Resp BP Pulse Ox 97.5 F L 61 18 115/69 98 12/26/16 06:48 12/26/16 06:48 12/26/16 06:48 12/26/16 06:48 12/26/16 06:48 General appearance: Present: A&O X 3, answers questions appropriately - Neck Neck exam general surgery: Present: supple, trachea midline. Absent: lymphadenopathy - Respiratory Respiratory exam: Present: decreased breath sounds (At bilateral bases), CTAB. Absent: accessory muscle use, rales, rhonchi, wheezes - Cardiovascular Cardiovascular exam: Present: RRR, +S1, +S2. Absent: diastolic murmur, gallop, rubs, systolic murmur - GI/Abdominal GI/Abdominal exam: Present: normal bowel sounds, soft, no peritoneal signs. Absent: distended, tenderness - Extremities Exam Extremities exam: Present: full ROM, normal inspection (Right foot-chronic dry ulcer on plantar surface of medial forefoot), warm, radial pulses palpable and symetrical. Absent: calf tenderness, cyanotic, pedal edema - Neurological Exam Neurological exam: Present: CN II-XII intact, oriented X3, no focal deficits, strengths equal and symetr throughout (4/5 motor power on the right side). Absent: pronater drift, facial droop, speech deficit - Skin Skin exam: Present: dry, intact Internal Med - H&P Results - Labs Labs: Cardiac Enzymes 12/26/16 Range/Units 08:34 Troponin I 0.07 H* (0-0.03) ng/mL - EKG Data -: EKG Interpreted by Myself (Right bundle-branch block) EKG shows normal: sinus rhythm Rate: normal
[2016-12-26] MEDS: Gabapentin 300 MG CAPSULE PO SCH ×2 (16:16→21:30)
[2016-12-26] MEDS: *HR* Heparin 5,000 UNIT/ML VIAL SQ SCH (18:12)
[2016-12-27 05:56] LABS: Basophils % 0.3 %; Eosinophils # 0.3 K/mcL (0.0-0.6); Eosinophils % 3.3 %; Hematocrit 33.4 % (35.3-44.9); Immature Granulocytes % 0.7 % (0-4); Lymphocytes # 1.9 K/mcL (0.6-4.6); Lymphocytes % 21.5 %; Mean Corpuscular HGB Conc 29.9 g/dL (31.6-35.5); Mean Corpuscular Hemoglobin 25.4 pg (28.0-33.3); Mean Platelet Volume 10.8 fL (9.4-12.4); Monocytes # 0.8 K/mcL (0.0-1.3); Monocytes % 9.7 %; Neutrophils # 5.6 K/mcL (1.6-8.9); Platelet Count 225 K/mcL (140-400); Red Blood Count 3.93 M/mcL (3.82-4.97); Red Cell Distribution Width 14.5 % (11.5-14.5); Segmented Neutrophils % 64.5 %
[2016-12-27 06:02] LABS: Hemoglobin A1C 12.2 %
[2016-12-27 06:12] LABS: Calcium 7.9 mg/dL (8.6-10.8); Magnesium 1.4 mg/dL (1.6-2.6); Phosphorous 3.4 mg/dL (2.3-4.7); Potassium 4.3 mEq/L (3.5-4.5)
[2016-12-27] MEDS: amLODIPine 5 MG TABLET PO SCH (08:11)
[2016-12-27] MEDS: Gabapentin 300 MG CAPSULE PO SCH ×3 (08:11→21:53)
[2016-12-27] MEDS: Aspirin Enteric Coated 81 MG Tablet PO SCH (08:12)
[2016-12-27] MEDS: *HR* Heparin 5,000 UNIT/ML VIAL SQ SCH ×2 (08:14→16:59)
[2016-12-27] MEDS: Insulin LISPRO 300 UNITS/3 ML VIAL SQ SCH ×6 (08:14→21:59)
[2016-12-27] MEDS: Insulin DETEMIR 100 UNIT/ML X5UNITS SQ SCH ×2 (11:31→21:51)
[2016-12-27] MEDS ORDERED: Magnesium Sulfate 2 GM in D5% in Water 100 ML IVPB ONE (12:18)
[2016-12-27] MEDS ORDERED: *HR* OxyCODONE Immed Rel 5 MG TABLET PO PRN ×2 (12:18→12:19)
[2016-12-27] MEDS ORDERED: Levofloxacin 750 MG/150 ML 750 MG/150 ML BAG IVPB SCH (13:00)
--- NOTE | 2016-12-27 16:07 | Internal Med Progress Note ---
<Castro Manuel T - Last Filed: 12/27/16 17:29> Date of Encounter: 12/27/16 - Constitutional Vitals: Temp Pulse Resp BP Pulse Ox 97.4 F L 64 18 156/79 93 12/27/16 15:02 12/27/16 15:02 12/27/16 15:02 12/27/16 15:02 12/27/16 15:02 Internal Medicine: Result - Labs CBC & Chem 7: 12/27/16 05:32 12/27/16 05:32 Labs: Short CBC 12/27/16 Range/Units 05:32 WBC 8.7 (4.3-11.1) K/mcL Hgb 10.0 L (11.5-15.4) g/dL Hct 33.4 L (35.3-44.9) % Plt Count 225 (140-400) K/mcL Neutrophils # 5.6 (1.6-8.9) K/mcL BMP 12/27/16 05:32 Sodium 138 Potassium 4.3 Chloride 108 Carbon Dioxide 26 BUN 27 H Creatinine 1.42 H Glucose 346 H Calcium 7.9 L Cardiac Enzymes 12/26/16 Range/Units 21:24 Troponin I 0.04 H* (0-0.03) ng/mL - Impressions Impressions Cervical Spine MRI 12/26/16 15:34 IMPRESSION: 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 The worst level is C5-C6 as discussed above. D/ / 12/26/2016 17:57:40 Roberta Coleman MD / [email or web address] Interpreting Provider: Roberta Coleman MD Consult Discharge Plan - Plan Referrals: NO,PCP [Primary Care Provider] - - Attending Attestation I examined this patient and my medical decision-making was reviewed with the Resident Physician on 12/27/16. I agree with the documented findings, disposition and treatment plan as described except to the extent set forth below. 81 F with Uncontrolled DM, A1C 12.2, complicated by CKD III, Chronic anemia, Diabetic foot ulcer, R foot, admitted for management of UTI, Urine with GPC No new complains, physical exam remarkable for R foot ~2cm punched out ulcer with clean surroundings and no definite discharge Labs and Imaging reviewed Continue antibiotics, await urine culture, and continue wound care for DM ulcer , start levemir, prandial and supplemental lispro. Rest of details as in residents documentation. Follow ECHO report. 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 Recently identified as enterococcus species It is believed that her UTI was the source of her nausea and vomiting. Qualifiers: Urinary tract infection type: acute cystitis Hematuria presence: without hematuria Qualified Code(s): N30.00 - Acute cystitis without hematuria (2) Elevated troponin Current Visit: Yes Status: Acute Assessment and plan: Patient's troponin level slightly elevated at 0.07. No new ischemic EKG changes are present. (3) Emesis Current Visit: Yes Status: Acute Assessment and plan: Patient's emesis was likely due to gastroenteritis. Patient has been placed on supportive care with IV hydration. Diet as tolerated. Monitor closely. Qualifiers: Vomiting type: bilious vomiting Nausea presence: with nausea Qualified Code(s): R11.14 - Bilious vomiting (4) CAD (coronary artery disease) Current Visit: Yes Status: Chronic Assessment and plan: Continue new home medications. Qualifiers: Coronary Disease-Associated Artery/Lesion type: bypass graft [place] vs. transplanted heart: [place] heart Associated angina: without angina Qualified Code(s): I25.810 - Atherosclerosis of coronary artery bypass graft(s) without angina pectoris (5) Chronic kidney disease Current Visit: Yes Status: Chronic Assessment and plan: Patient has chronic kidney disease, and her baseline creatinine level is approximately 1.7. -This morning patient's creatinine was 1.42. -Continue IV hydration. -Patient's DANUTA inhibitor was initially held, but was restarted due to patient's increasing blood pressure. -Her blood pressure this morning was 172/76. Qualifiers: Chronic kidney disease stage: stage 3 (moderate) Qualified Code(s): N18.3 - Chronic kidney disease, stage 3 (moderate) (6) Diabetes mellitus Current Visit: Yes Status: Chronic Assessment and plan: Diabetes is uncontrolled. Her hemoglobin A1c is approximately 12. Diabetic diet. Qualifiers: Diabetes mellitus type: type 2 Diabetes mellitus complication status: with neurologic complications Diabetes mellitus complication detail: with polyneuropathy Diabetes mellitus buttermaker continuous churn insulin use: with buttermaker continuous churn use Qualified Code(s): E11.42 - Type 2 diabetes mellitus with diabetic polyneuropathy; Z79.4 - senior living (current) use of insulin (7) Essential hypertension Current Visit: Yes Status: Chronic Assessment and plan: Initially, patient's blood pressure was controlled. However her blood pressure has increased to 172/76. DANUTA inhibitor has been resumed. (8) Hypertension Current Visit: No Status: Chronic Qualifiers: Hypertension type: essential hypertension Qualified Code(s): I10 - Essential (primary) hypertension (9) Renal disease Current Visit: No Status: Chronic - Subjective Interval history: Patient was seen and examined episodes morning. She denied having any nausea vomiting or headache. She does however complain of some neck pain that she has had since admission. Does have right-sided weakness due to an old CVA. Currently denies having fever, chills, headache, or diarrhea. Patient has no other complaints at this time. - Constitutional Vitals: Temp Pulse Resp BP Pulse Ox 97.4 F L 64 18 156/79 93 12/27/16 15:02 12/27/16 15:02 12/27/16 15:02 12/27/16 15:02 12/27/16 15:02 General appearance: Present: A&O X 3, answers questions appropriately - Respiratory Respiratory exam: Present: CTAB. Absent: accessory muscle use, rales, rhonchi, wheezes - Cardiovascular Cardiovascular exam: Present: RRR, +S1, +S2. Absent: diastolic murmur, gallop, rubs, systolic murmur - Psychiatric Psychiatric exam: Present: normal affect, normal mood - Skin Skin exam: Present: dry, intact Internal Medicine: Result - Labs CBC & Chem 7: 12/27/16 05:32 12/27/16 05:32 Labs: Short CBC 12/27/16 Range/Units 05:32 WBC 8.7 (4.3-11.1) K/mcL Hgb 10.0 L (11.5-15.4) g/dL Hct 33.4 L (35.3-44.9) % Plt Count 225 (140-400) K/mcL Neutrophils # 5.6 (1.6-8.9) K/mcL BMP 12/27/16 05:32 Sodium 138 Potassium 4.3 Chloride 108 Carbon Dioxide 26 BUN 27 H Creatinine 1.42 H Glucose 346 H Calcium 7.9 L Cardiac Enzymes 12/26/16 Range/Units 21:24 Troponin I 0.04 H* (0-0.03) ng/mL - Impressions Impressions Cervical Spine MRI 12/26/16 15:34 IMPRESSION: 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 The worst level is C5-C6 as discussed above. D/ / 12/26/2016 17:57:40 Roberta Coleman MD / [email or web address] Interpreting Provider: Roberta Coleman MD
[2016-12-28] MEDS ORDERED: *HR* LORazepam 2 MG/ML VIAL ONE (02:19)
[2016-12-28 06:09] LABS: Basophils % 0.2 %; Eosinophils # 0.4 K/mcL (0.0-0.6); Eosinophils % 3.9 %; Hematocrit 33.4 % (35.3-44.9); Hemoglobin 10.4 g/dL (11.5-15.4); Immature Granulocytes % 0.5 % (0-4); Lymphocytes # 2.2 K/mcL (0.6-4.6); Lymphocytes % 20.8 %; Mean Corpuscular HGB Conc 31.1 g/dL (31.6-35.5); Mean Corpuscular Hemoglobin 26.3 pg (28.0-33.3); Mean Corpuscular Volume 84.3 fL (83.0-100.0); Mean Platelet Volume 10.9 fL (9.4-12.4); Monocytes # 0.9 K/mcL (0.0-1.3); Monocytes % 8.9 %; Neutrophils # 6.8 K/mcL (1.6-8.9); Platelet Count 240 K/mcL (140-400); Red Blood Count 3.96 M/mcL (3.82-4.97); Red Cell Distribution Width 14.3 % (11.5-14.5); Segmented Neutrophils % 65.7 %
[2016-12-28 06:21] LABS: Calcium 8.5 mg/dL (8.6-10.8)
[2016-12-28] MEDS: *HR* Heparin 5,000 UNIT/ML VIAL SQ SCH (06:21)
[2016-12-28] MEDS ORDERED: Furosemide 40 MG TABLET PO SCH (08:00)
[2016-12-28] MEDS: Insulin LISPRO 300 UNITS/3 ML VIAL SQ SCH ×3 (08:51→12:04)
[2016-12-28] MEDS: amLODIPine 5 MG TABLET PO SCH (08:52)
[2016-12-28] MEDS: Gabapentin 300 MG CAPSULE PO SCH ×2 (08:53→15:11)
[2016-12-28] MEDS: Insulin DETEMIR 100 UNIT/ML X5UNITS SQ SCH (08:53)
[2016-12-28] MEDS: Aspirin Enteric Coated 81 MG Tablet PO SCH (08:53)
[2016-12-28] MEDS ORDERED: Isosorbide MONOnitrate (24 HR) 30 MG TAB.ER.24H PO SCH (09:00)
[2016-12-28] MEDS ORDERED: Insulin DETEMIR 100 UNIT/ML X5UNITS SQ SCH (10:12)
[2016-12-28] MEDS ORDERED: Insulin LISPRO 300 UNITS/3 ML VIAL SQ SCH (10:13)
[2016-12-28 11:46] VITALS: BP 130/70
--- NOTE | 2016-12-28 13:53 | Discharge Summary ---
<Bird Vaz - Last Filed: 12/28/16 14:05> Date of Encounter: 12/28/16 Time of Encounter: 09:15 - Discharge Diagnosis (1) UTI (urinary tract infection) Priority: Primary Status: Acute Comments: Urine culture was obtained. -Patient's Urine grew gram-positive cocci, determined to be enterococcus. -Patient initially placed on ceftriaxone and levofloxacin. -Patient currently denies having any suprapubic tenderness, fever, chills, nausea, vomiting. -Patient will be discharged on ampicillin. Bottle available in the outpatient pharmacy. 500 mg every 6 hours orally for 5 days. Qualifiers: Urinary tract infection type: acute cystitis Hematuria presence: without hematuria Qualified Code(s): N30.00 - Acute cystitis without hematuria (2) Elevated troponin Priority: Secondary Status: Acute (3) Emesis Priority: Secondary Status: Acute Comments: Patient's nausea and vomiting was likely secondary to her urinary tract infection. -The symptoms have since resolved since her admission. -Patient has not complained of nausea and vomiting today. Qualifiers: Vomiting type: bilious vomiting Nausea presence: with nausea Qualified Code(s): R11.14 - Bilious vomiting (4) CAD (coronary artery disease) Priority: Secondary Status: Chronic Comments: Continue home medications. Qualifiers: Coronary Disease-Associated Artery/Lesion type: bypass graft [place] vs. transplanted heart: [place] heart Associated angina: without angina Qualified Code(s): I25.810 - Atherosclerosis of coronary artery bypass graft(s) without angina pectoris (5) Chronic kidney disease Priority: Secondary Status: Chronic Comments: Patient's creatinine at baseline is approximately 1.7. Patient's creatinine this morning was 1.18. Qualifiers: Chronic kidney disease stage: stage 3 (moderate) Qualified Code(s): N18.3 - Chronic kidney disease, stage 3 (moderate) (6) Diabetes mellitus Priority: Secondary Status: Chronic Comments: Patient's diabetes noted to be uncontrolled. Hemoglobin A1c was 12. Qualifiers: Diabetes mellitus type: type 2 Diabetes mellitus complication status: with neurologic complications Diabetes mellitus complication detail: with polyneuropathy Diabetes mellitus group home insulin use: with vermin exterminator use Qualified Code(s): E11.42 - Type 2 diabetes mellitus with diabetic polyneuropathy; Z79.4 - terminal press operator (current) use of insulin (7) Essential hypertension Priority: Secondary Status: Chronic Comments: Patient's blood pressure stable. -This morning her blood pressure was 134/70. -Continue home medications Norvasc and Coreg. - Discharge Medications Prescriptions: Ampicillin Trihydrate 500 mg PO Q6H #20 capsule Home Medications: Atorvastatin Calcium [Lipitor] 80 mg PO DAILY 10/23/16 [History] Carvedilol [Coreg] 25 mg PO BID 10/23/16 [History] Clopidogrel [Plavix] 75 mg PO DAILY 10/23/16 [History] Furosemide [Lasix] 40 mg PO BID 10/23/16 [History] Gabapentin [Neurontin] 300 mg PO TID 10/23/16 [History] Insulin Glargine [Lantus] 50 units SQ HS 10/23/16 [History] Isosorbide MONOnitrate [Isosorbide Mononitrate] 30 mg PO DAILY 10/23/16 [History ] Lisinopril [Zestril] 10 mg PO BID 10/23/16 [History] Nitroglycerin [Nitrostat] 0.4 mg SL PRN PRN 10/23/16 [History] Omeprazole [PriLOSEC] 20 mg PO DAILY 10/23/16 [History] amLODIPine [Norvasc] 2.5 mg PO DAILY 10/23/16 [History] glipiZIDE [Glipizide] 10 mg PO BID 10/23/16 [History] Aspirin [Lo-Dose Aspirin EC] 81 mg PO DAILY 12/26/16 [History] Sertraline [Zoloft] 50 mg PO DAILY 12/26/16 [History] Ampicillin Trihydrate 500 mg PO Q6H #20 capsule 12/28/16 [Rx] Allergies/Adverse Reactions: Allergies codeine Allergy (Verified 10/23/16 08:48) See Comments Erythromycin Base Allergy (Verified 10/23/16 08:48) See Comments Procedures/tests Complete & Pending: Procedures Performed prior 72 hours Category Date Time Status MR cervical spine wo con [MR] Routine MRI 12/26/16 15:34 Completed EV echocardiogram Routine Y 12/26/16 10:49 Completed Date of admission: 12/26/16 17:50 Primary care physician: PCP NO Consults: 12/26/16 04:09 Consult to Wound Care [CONS] Routine Reason for Consult: Right diabetic foot ulcer Call Completed: No Discharging clinician: Bird Vaz Anticipated date of discharge: 12/28/16 - Patient Status Disposition: Home, Self-Care Condition: Good Overall status at discharge: patient is back to baseline - Discharge Instructions Instructions: Urinary Tract Infection in Women (DC) Follow Up With: Trevor Talavera, BUS STEWARD [Advanced Practice Nurse] - NO,PCP [Primary Care Provider] - - Diet and Activity Activity: resume usual activities as tolerated Diet: advance to your usual diet, diabetic diet Hospital course: Ms. Contreras is a 81 year old female who first presented to the hospital with a chief complaint of headache, nausea and vomiting. Patient presented with complaints of occipital headache associated with neck pain and an overall feeling of sickness. She did not have any other neurologic symptoms upon arrival. She denied dizziness, blurred vision, focal weakness, or paresthesias. The patient has history of a CVA, and suffers from chronic right- sided weakness. MRI was performed on patient. Findings of MRI included neural foramina narrowing, especially at level C5-C6. MRI also noted osteophytes causing stenosis of the thecal sac. Patient complained of neck pain during her stay in the hospital, although her pain slightly improved during the course of her stay. On presentation, patient's white count was elevated at 15. Her white count initially decreased to 8.7, but then increased to 10.4 this morning. While in the hospital, patient was diagnosed with UTI. She was started on ceftriaxone and levofloxacin. He was also noted in the hospital the patient had uncontrolled diabetes, with a hemoglobin A1c of 12. She placed on insulin units twice a day Levemir and lispro was increased to 10 units. Urine culture was obtained, which grew gram-positive cocci, identified as enterococcus. Sensitivity was obtained. Patient will be placed on ampicillin 500 mg every 6 hours orally for 5 days. Patient's condition on discharge is stable. - Time Spent with Patient Total time spent providing and/or coordinating discharge services: Greater than 30 minutes - Constitutional Vitals: Temp Pulse Resp BP Pulse Ox 97.8 F 72 16 130/70 94 12/28/16 11:41 12/28/16 11:41 12/28/16 11:41 12/28/16 11:41 12/28/16 11:41 General appearance: Present: A&O X 3, answers questions appropriately - Neck Neck exam general surgery: Present: tenderness - Respiratory Respiratory exam: Present: CTAB. Absent: accessory muscle use, rales, rhonchi, wheezes - Cardiovascular Cardiovascular exam: Present: RRR, +S1, +S2. Absent: diastolic murmur, gallop, rubs, systolic murmur - GI/Abdominal GI/Abdominal exam: Present: normal bowel sounds, soft, no peritoneal signs. Absent: distended, tenderness - Extremities Exam Extremities exam: Present: normal inspection - Skin Skin exam: Present: dry, intact <Castro Manuel T - Last Filed: 12/28/16 17:22> Date of Encounter: 12/28/16 Procedures/tests Complete & Pending: Procedures Performed prior 72 hours Category Date Time Status MR cervical spine wo con [MR] Routine MRI 12/26/16 15:34 Completed EV echocardiogram Routine Y 12/26/16 10:49 Completed Date of admission: 12/26/16 17:50 Primary care physician: PCP NO Consults: 12/26/16 04:09 Consult to Wound Care [CONS] Routine Reason for Consult: Right diabetic foot ulcer Call Completed: No Hospital course: Ms. Contreras is a 81 year old female - Time Spent with Patient Total time spent providing and/or coordinating discharge services: - Constitutional Vitals: Temp Pulse Resp BP Pulse Ox 97.8 F 72 16 130/70 94 12/28/16 11:41 12/28/16 11:41 12/28/16 11:41 12/28/16 11:41 12/28/16 11:41 - Attending Attestation I examined this patient and my medical decision-making was reviewed with the Resident Physician on 12/28/16. I agree with the documented findings, disposition and treatment plan as described except to the extent set forth below. Patient admitted for enterococcus UTI, seen and evaluated at bedside this morning, no new complains. She reported that her neck pain has resolved. Nause/vomiting has not occured throughout admission. Urine culture with Enterococcus, patient received levoflox /ampicillin in-patient Physical exam is unremarkable Stable to be discharged home on ampicillin Patient educated extensively about her uncontrolled DM with A1C 12.2, and need for increased insulin, she reports preferring the pen to the vial due to her poor vision, and she is supposed to betaking more insulin that she currently is taking, but she cannot afford more pens. She confessed to eating cookies and candies, and is educated on dietary discretion. Follow up with PCP for addition to her DM meds and her DM control, no in-house mobile unit assistant or chemical educator Rest of details as in resident's documentation
--- NOTE | 2016-12-28 15:48 | Physician Discharge Referral ---
Home Health/Hosp Referral Info Transfer to: Home Health Provider in Charge Post Discharge: PCP - Diagnosis (1) UTI (urinary tract infection) Priority: Primary Status: Acute (2) Elevated troponin Priority: Secondary Status: Acute (3) Emesis Priority: Secondary Status: Acute (4) CAD (coronary artery disease) Priority: Secondary Status: Chronic (5) Chronic kidney disease Priority: Secondary Status: Chronic (6) Diabetes mellitus Priority: Secondary Status: Chronic (7) Essential hypertension Priority: Secondary Status: Chronic - Respiratory Orders Smoking Cessation: Smoking cessation has been advised. For more information, call the [place] Tobacco Quit Line at 7-124-HTRC-NOW. - Diet/Nutrition Diet/Nutrition Orders: No Concentrated Sweets - Activity Activity Orders: Ambulate - Services Needed Following services are medically necessary services: Nursing, Home Health Aide - Transfer Medications Prescriptions: Ampicillin Trihydrate 500 mg PO Q6H #20 capsule Home Medications: Atorvastatin Calcium [Lipitor] 80 mg PO DAILY 10/23/16 [History] Carvedilol [Coreg] 25 mg PO BID 10/23/16 [History] Clopidogrel [Plavix] 75 mg PO DAILY 10/23/16 [History] Furosemide [Lasix] 40 mg PO BID 10/23/16 [History] Gabapentin [Neurontin] 300 mg PO TID 10/23/16 [History] Insulin Glargine [Lantus] 50 units SQ HS 10/23/16 [History] Isosorbide MONOnitrate [Isosorbide Mononitrate] 30 mg PO DAILY 10/23/16 [History ] Lisinopril [Zestril] 10 mg PO BID 10/23/16 [History] Nitroglycerin [Nitrostat] 0.4 mg SL PRN PRN 10/23/16 [History] Omeprazole [PriLOSEC] 20 mg PO DAILY 10/23/16 [History] amLODIPine [Norvasc] 2.5 mg PO DAILY 10/23/16 [History] glipiZIDE [Glipizide] 10 mg PO BID 10/23/16 [History] Aspirin [Lo-Dose Aspirin EC] 81 mg PO DAILY 12/26/16 [History] Sertraline [Zoloft] 50 mg PO DAILY 12/26/16 [History] Ampicillin Trihydrate 500 mg PO Q6H #20 capsule 07/13/17 [Rx] Allergies/Adverse Reactions: Allergies codeine Allergy (Verified 10/23/16 08:48) See Comments Erythromycin Base Allergy (Verified 10/23/16 08:48) See Comments Certification: Further, I certify that my clinical findings support that this patient is homebound (i.e. absences from home require considerable and taxing effort and are for medical reasons or mandaeism services or infrequently or short duration when for other reasons) because: Homebound Reason: Patient requires assistance of a person or device to safely leave home Attestation: My signature below is to certify that this patient is under my care and that I, or nurse practitioner, or a physician's assistant professor of psychology working with me, has a face-to -face encounter with this patient.
[2016-12-28] MEDS ORDERED: Ampicillin 2 GM in 0.9 % Sodium Chloride Mini Bag 100 ML IVPB SCH (18:00)
== END 2016-12-28 16:39 | disposition home or self-care (01) | DRG 690 ==
LOC: 2ANU
PROVIDERS: ADMIT Hospitalist; ATTEND Internal Medicine

== ENCOUNTER 2018-01-04 12:37 | Observation (INO) ==
[~2018-01-04 12:37] MED LIST: Aspirin Enteric Coated 81 MG Tablet PO ONE; Insulin LISPRO 300 UNITS/3 ML VIAL SQ ONE; Ondansetron 4 MG/2 ML VIAL ONE; Pantoprazole 40 MG VIAL ONE
--- NOTE | 2018-01-04 13:15 | Cardiology Consult Note ---
<Jeff Vines R - Last Filed: 01/04/18 13:15> Date of Encounter: 01/04/18 Time of Encounter: 13:13 Assessment and Plan (1) NSTEMI (non-ST elevated myocardial infarction) Status: Acute Troponins 01/02/18 0.24, 0.20, 0.18. Chest pain started Sunday, not relieved by nitro. CP spontaneously resolved Sunday night, then recurred last night, prompting re-admission. EKG SR with diffuse ischemic changes noted. On heparin gtt. Continue ASA, Plavix, Statin, BB, Imdur. TTE 01/01/18 EF preserved 55%. Hx of CAD s/p CAB x 3 ~2009 and PCI most recently 2013. Pt previously refused LHC. Recommend LHC R/B/A discussed and pt now agrees to proceed. LHC today. (2) CAD (coronary artery disease) Status: Chronic Hx CABG and PCI. Continue ASA, Plavix, Statin, BB, Imdur. Increasing Imdur to 60mg daily. Qualifiers: Coronary Disease-Associated Artery/Lesion type: unspecified vessel or lesion type [place] vs. transplanted heart: [place] heart Associated angina: with unstable angina Qualified Code(s): I25.110 - Atherosclerotic heart disease of [place] coronary artery with unstable angina pectoris Discussion w patient/family: The assessment and plan as outlined above was discussed with the patient and/or family members who expressed understanding and agreement. All questions were answered. Thank you for involving us in the care of your patient. Please call with any questions. I will discuss all the above with Dr. Mejia and make changes as necessary. History of Present Illness Consult date: 01/04/18 Consult reason: NSTEMI Chief complaint: Chest pain History of present illness: Ms. Contreras is a 82 year old female with a PMH of arthritis, cancer, CAD with hx CABG x 3 in 2009 and PCI, CVA, DM, HLD, HTN, CKD. She presented initially Sunday for CP, troponin peaked 0.24, but pt refused LHC, opted for medical management. She went home yesterday, again developed chest pain not relieved by nitro and presented back to ED--troponins not crossed over onto results at this time. She is chest pain free currently. CV testing: TTE 01/01/18: LVEF 55%. Moderate concentric left ventricular hypertrophy. Diastolic dysfunction with elevated filling pressures. Normal right ventricular structure and function. Moderate aortic stenosis. Mild mitral regurgitation. Mild mitral stenosis, MG 3-4 mmHg at 65 bpm. Unable to estimate RVSP - TR signal is suboptimal. No evidence of PFO with agitated saline contrast. [facility] 05/12/14: Patient had successful PTCA/Bare Metal Stent placement in the proximal PDA. There is severe three vessel coronary artery disease. S/P CABG 2 of 3 patent bypass grafts. Moderately elevated LVEDP. Past Med Surg Social Fam HX - Past Medical History Medical history: arthritis, cancer, coronary artery disease, CVA, diabetes, glaucoma, hyperlipidemia, hypertension, myocardial infarction, renal disease, other Additional medical history: uterus cancer. 7 strokes Psychiatric history: anxiety, depression - Past Surgical History Surgical History: angioplasty/stent, carotid endarterectomy, cholecystectomy, coronary bypass (CABG), hysterectomy, orthopedic, other, other Additional surgical history: 2 stents, carotid endarterectomy - Social History Smoking Status: Former smoker Smokeless Tobacco Status: No Alcohol use: none Drug use: none - Family History Mother Family Member Ethnicity: Non- Living Status: Hx Family Cancer: Yes Hx Family Endocrine Disorder: Yes (DM) Father Family Member Ethnicity: Non- Living Status: Hx Family Cardiac Disorders: Yes ([place], HD) Brother Family Member Ethnicity: Non- Living Status: Hx Family Cardiac Disorders: Yes (HD) Hx Family Cancer: Yes Sister Family Member Ethnicity: Non- Living Status: Still Living Hx Family Endocrine Disorder: Yes (DM) Medications and Allergies Atorvastatin Calcium [Lipitor] 80 mg PO DAILY 10/23/16 [History] Carvedilol [Coreg] 25 mg PO BID 10/23/16 [History] Clopidogrel [Plavix] 75 mg PO DAILY 10/23/16 [History] Furosemide [Lasix] 40 mg PO BID 10/23/16 [History] Gabapentin [Neurontin] 300 mg PO TID 10/23/16 [History] Insulin Glargine [Lantus] 50 units SQ HS 10/23/16 [History] Lisinopril [Zestril] 10 mg PO DAILY 10/23/16 [History] Omeprazole [PriLOSEC] 20 mg PO DAILY 10/23/16 [History] amLODIPine [Norvasc] 2.5 mg PO DAILY 10/23/16 [History] glipiZIDE [Glipizide] 10 mg PO BID 10/23/16 [History] Aspirin [Lo-Dose Aspirin EC] 81 mg PO DAILY 12/26/16 [History] Sertraline [Zoloft] 50 mg PO DAILY 12/26/16 [History] Isosorbide MONOnitrate (24 HR) [Imdur] 120 mg PO DAILY #30 tab.er.24h 01/05/18 [ Rx] 3 Allergy/AdvReac Type Severity Reaction Status Date / Time codeine Allergy See Verified 01/01/18 12:14 Comments Erythromycin Base Allergy See Verified 01/01/18 12:14 Comments All Systems Review: The remainder of the systems were reviewed and are negative - Cardiovascular Cardiovascular: as per HPI, chest pain at rest, chest pain with exertion, radiating jaw, neck or arm pain Physical Examination General: Conversant HEENT: Atraumatic, Normocephaly, Mucus Membranes Moist Neck: No JVD, Normal carotid pulses Cardiac: Reg Rate and Rhythm, Normal S1 and S2, No Murmur Lungs: Normal Breath Sounds, No Wheeze, Rales, Rhonchi Neuro: Alert and responsive, No focal deficits noted Abdomen: Soft, Non-Tender Skin: No rashes noted on visualized skin Musculoskeletal: No Chest Wall Tenderness Extremities: No Clubbing, No Cyanosis, No Edema, Normal Pulses Results - Imaging and Cardiology Echo: report reviewed Cardiac cath: report reviewed - EKG Interpretation EKG results cardiology: personally reviewed Consult Discharge Plan - Plan Instructions: Chest Pain (DC) Additional Instructions: RISK FACTORS: STOP SMOKING: If you smoke, STOP. Smoking or tobacco use significantly increases your risk of heart disease because nicotine causes the arteries to narrow or constrict. It also causes fats to stick to the artery. Your chances of having a heart attack are greatly increased if you continue to smoke. For more information, call the education line for smoking cessation 5-685-UHPJNTZ EAT A LOW FAT/CHOLESTEROL/SODIUM DIET: This diet may help reduce your chances of having a heart attack. LIFTING: Avoid lifting anything more than 10 pounds for 5-7 days Prior to straining, laughing, sneezing and/or coughing, apply manual pressure directly over insertion site. ACTIVITY: You may walk or climb stairs as tolerated You can resume sexual activity as tolerated In general, you are encouraged to engage in a minimum of 30 minutes or more of moderate intensity physical activity, such as brisk walking, daily or at least 3 -4 times weekly BATHING Do not submerge the site into water (bath tub, hot tub, swimming pool) for 1 week. This can be a source for infection into the blood stream. You may shower after 24 hours SITE CARE: After 24 hours, you may remove the dressing and leave the site open to air. Keep the site clean and dry. Clean gently and pat dry. You can expect bruising and tenderness that gradually resolve within a week or two. Return to work as instructed per your physician Resume driving as instructed per physician Keep all scheduled follow up appointments Resume medications as instructed IMPORTANT: If prescribed a Platelet Aggregation Inhibitor such as, Plavix, Brilinta or Effient: Duration of therapy is minimum one year These medications are often used in combination with Aspirin in prevention of future heart attacks Never discontinue unless consult with your Heavy Equipment Plumbing Supervisor STROKE (CVA) Risk factors for a stroke are: Age, cigarette smoking, diabetes, excessive alcohol consumption, family history, high blood pressure, overweight, physical inactivity, prior stroke, heart attack, diagnosis of carotid artery stenosis or other artery disease. Warning signs: Sudden numbness or weakness of the face, arm or leg; especially on one side of the body, sudden confusion, trouble speaking or understanding, sudden trouble seeing in one or both eyes, sudden trouble walking, dizziness, loss of balance or coordination, sudden severe headache with no cause. Call 911 or go to the Emergency Room. CONGESTIVE HEART FAILURE: If you have been diagnosed with Congestive Heart Failure (CHF) and your symptoms return, make an appointment with your physician Weigh yourself daily. Notify your physician if you have a weight gain of two or more pounds in one day or five or more pounds in one week. If you experience any difficulty breathing, please call 911 BLEEDING: Although the risk of bleeding is minimal, it can happen. If you have any bleeding from the site, apply firm pressure above the puncture site for 10-15 minutes. If the bleeding does not stop, continue manual pressure and call 911 Contact your physician if: You develop a fever greater than 101 degrees Fahrenheit Your site becomes reddened or has any drainage You have an increase in pain or burning at the site or if a large knot forms at the site. If you experience chest pain, shortness of breath, dizziness, or extreme tiredness, stop the activity and rest. Please notify your physicians office if you experience any of these symptoms and they are not relieved by rest please call 911! Referrals: Amy Campbell, STAR [Primary Care Provider] - Prescriptions: Isosorbide MONOnitrate (24 HR) [Imdur] 120 mg PO DAILY #30 tab.er.24h <Pablo Mejia - Last Filed: 01/07/18 12:58> Date of Encounter: 01/04/18 Time of Encounter: 14:00 - Attending Attestation I have personally performed a face to face evaluation on this patient. I have reviewed and agree with the care plan. History and Exam by me shows: CC: Chest pain HPI: Pt complains of severe 8/10 mid sternal chest pain, occurs at rest, comes and goes spontaneously, improved but not completely resolved with sl ntg. PT reports chest pain the same as previous anginal equilavent chest pain. PT has been hospitalized for similar complaints multple times over last several months , has refused recommended LHC/poss. She is noncompliant with obtaining recommended medication changes, has not increased oral nitrates or beta blockers prior to returning to emergency room for recurrent chest pain. ROS: reviewed PMH: reviewed PE: pt seen and examined, agree with findings as documented IMP/PLAN 1. Unstable angina, recommend LHC/poss, after lengthy discussion now agrees to proceed with diagnositic imaging and percutaneous revascularization if indicated. Reviewed risks and benefits, alternative tx, elects to proceed, further evaluation and recommendations pending cardiac imaging. Assessment and Plan Discussion w patient/family: The assessment and plan as outlined above was discussed with the patient and/or family members who expressed understanding and agreement. All questions were answered. Thank you for involving us in the care of your patient. Please call with any questions. History of Present Illness History of present illness: Ms. Contreras is a 82 year old female All Systems Review: The remainder of the systems were reviewed and are negative Results 01/04/18 13:45 01/04/18 13:45
[2018-01-04] MEDS ORDERED: *HR* Heparin 5,000 UNIT/ML VIAL IVP PRN ×2 (13:41)
[2018-01-04] MEDS ORDERED: *HR* Heparin 5,000 UNIT/ML VIAL IVP ONE (13:41)
[2018-01-04] MEDS ORDERED: Nitroglycerin 1,000 MCG/10 ML VIAL IV ONE (13:44)
[2018-01-04] MEDS ORDERED: Heparin 1,000 UNITS/500 mL 500 ML ONE (13:44)
[2018-01-04] MEDS ORDERED: ISOVUE-370 200 ML INFUS..BTL IV ONE (13:44)
[2018-01-04] MEDS ORDERED: 0.9 % Sodium Chloride 1,000 ML ONE ×2 (13:44→16:39)
[2018-01-04] MEDS ORDERED: *HR* Heparin 10,000 UNIT/10 ML VIAL ONE (13:44)
[2018-01-04] MEDS ORDERED: Heparin 25,000 UNIT/500 ML D5W 25,000 UNIT/500 ML BAG IVC SCH (13:45)
[2018-01-04] MEDS ORDERED: Ondansetron 4 MG/2 ML VIAL IVP PRN ×2 (14:10→22:00)
[2018-01-04] MEDS ORDERED: Nitroglycerin 1 INCH/GM PACKET TP SCH (14:15)
[2018-01-04 14:16] LABS: Calcium 8.8 mg/dL (8.6-10.3); Potassium 4.5 mEq/L (3.5-5.1)
[2018-01-04 14:27] LABS: Basophils # 0.1 K/mcL (0.0-0.2); Basophils % 0.6 %; Eosinophils # 0.2 K/mcL (0.0-0.6); Hematocrit 33.2 % (35.3-44.9); Hemoglobin 10.5 g/dL (11.5-15.4); Immature Granulocytes % 0.5 % (0-4); Lymphocytes # 2.1 K/mcL (0.6-4.6); Lymphocytes % 19.5 %; Mean Corpuscular HGB Conc 31.6 g/dL (31.6-35.5); Mean Corpuscular Hemoglobin 26.9 pg (28.0-33.3); Mean Corpuscular Volume 84.9 fL (83.0-100.0); Mean Platelet Volume 11.4 fL (9.4-12.4); Monocytes # 0.8 K/mcL (0.0-1.3); Monocytes % 7.5 %; Neutrophils # 7.3 K/mcL (1.6-8.9); Platelet Count 281 K/mcL (140-400); Red Blood Count 3.91 M/mcL (3.82-4.97); Red Cell Distribution Width 14.9 % (11.5-14.5); Segmented Neutrophils % 69.9 %
[2018-01-04] MEDS ORDERED: Acetaminophen 325 MG TABLET PO PRN (15:25)
[2018-01-04] MEDS ORDERED: *HR* Midazolam HCl 2 MG/2 ML VIAL ONE (16:37)
[2018-01-04] MEDS ORDERED: *HR* FentaNYL (PF) 100 MCG/2 ML VIAL ONE (16:37)
[2018-01-04] MEDS: Insulin LISPRO 300 UNITS/3 ML VIAL SQ SCH (17:09)
[2018-01-04] MEDS ORDERED: Insulin LISPRO 300 UNITS/3 ML VIAL SQ SCH (21:00)
[2018-01-04] MEDS ORDERED: Insulin DETEMIR 100 UNIT/ML X5UNITS SQ SCH (21:00)
--- NOTE | 2018-01-04 21:38 | Event Note ---
Date of Encounter: 01/04/18 Time of Encounter: 21:37 [employer] was down in AM when patient was seen, H&P and orders written on paper chart.
[2018-01-04] MEDS: Nitroglycerin 1 INCH/GM PACKET TP SCH (22:31)
--- NOTE | 2018-01-05 07:32 | Electrocardiograph Report ---
[address] [address] Test Date: 2018-01-04 Pat Name: Mar Contreras Department: 112 Room: 2A43 Gender: F Hospitality Specialist: [id number] : [id number] Requested By: Kirk Rojas Order Number: [id number] Reading MD: Vinh Mcgee Measurements Intervals [place] Rate: 77 P: 17 [place]: 205 QRS: -12 QRSD: 118 T: 131 QT: 416 QTc: 447 Interpretive Statements SINUS RHYTHM MODERATE INTRAVENTRICULAR CONDUCTION DELAY ST DEVIATION AND MODERATE T-WAVE ABNORMALITY, CONSIDER LATERAL ISCHEMIA Electronically Signed On 01-05-2018 7:30:57 EDT by Vinh Mcgee
[2018-01-05] MEDS: Insulin LISPRO 300 UNITS/3 ML VIAL SQ SCH (08:28)
[2018-01-05] MEDS ORDERED: Aspirin Enteric Coated 81 MG Tablet PO SCH (09:00)
[2018-01-05] MEDS ORDERED: Isosorbide MONOnitrate (24 HR) 30 MG TAB.ER.24H PO SCH (09:00)
[2018-01-05] MEDS ORDERED: Gabapentin 300 MG CAPSULE PO SCH (09:00)
[2018-01-05] MEDS ORDERED: Pantoprazole 40 MG VIAL IVP SCH (09:00)
[2018-01-05] MEDS ORDERED: amLODIPine 5 MG TABLET PO SCH (09:00)
[2018-01-05] MEDS ORDERED: Aspirin 81 MG TAB.CHEW PO SCH (09:00)
--- NOTE | 2018-01-05 09:25 | Cardiology Progress Note ---
Date of Encounter: 01/05/18 Time of Encounter: 09:22 Assessment and Plan (1) NSTEMI (non-ST elevated myocardial infarction) Current Visit: No Status: Acute Troponins 01/02/18 0.24, 0.20, 0.18. Chest pain started Sunday, not relieved by nitro. CP spontaneously resolved Sunday night, then recurred night, prompting re-admission. EKG SR with diffuse ischemic changes noted. Continue ASA, Plavix, Statin, BB, Imdur. TTE 01/01/18 EF preserved 55%. Hx of CAD s/p CAB x 3 ~2009 and PCI most recently 2013. Pt previously refused LHC. Agreed to [facility] yesterday--final report pending. Reportedly no intervention, medical management was recommended. Will increase Imdur to 120mg daily. Right femoral access site healing well. No bleeding or hematoma, mild ecchymosis. Pt refuses to answer any questions this AM, yelling "Franco". Her brother called while I was in the room. States pt is upset about not having much contact with her children and Franco is her son. He thinks she needs to go to [facility]. Will consult PT/OT and social work for d/c planning. Cardiology signing off. Reconsult PRN. Will coordinate outpt follow-up in 1 week. (2) CAD (coronary artery disease) Current Visit: No Status: Chronic Hx CABG and PCI. Continue ASA, Plavix, Statin, BB, Imdur. Increasing Imdur to 120mg daily. Qualifiers: Coronary Disease-Associated Artery/Lesion type: unspecified vessel or lesion type [place] vs. transplanted heart: [place] heart Associated angina: with unstable angina Qualified Code(s): I25.110 - Atherosclerotic heart disease of [place] coronary artery with unstable angina pectoris Discussion w patient/family: The assessment and plan as outlined above was discussed with the patient and/or family members who expressed understanding and agreement. All questions were answered. Thank you for involving us in the care of your patient. Please call with any questions. I will discuss all the above with Dr. Mejia and make changes as necessary. Subjective Principal diagnosis: NSTEMI Interval history: [facility] yesterday--no interventon, medical management was recommended. Final report pending. Pt will not respond to my questions. She is yelling out "Franco". Her brother called while I was at bedside. He states Franco is her son and that she gets very emotional/upset due to not having much contact with her children. I asked pt if she has any chest pain, she will not answer. Objective Vital Signs Temp Pulse Resp BP Pulse Ox 01/05/18 03:41 98.4 F 99 18 140/90 95 01/04/18 23:38 99.0 F 87 18 152/80 96 01/04/18 18:32 73 16 151/84 97 01/04/18 18:15 73 16 135/80 98 01/04/18 18:03 98.0 F 74 16 148/82 97 Intake and Output 01/04/18 01/05/18 01/05/18 23:59 07:59 15:59 Intake Total 133 / 133 Output Total 400 / 400 Balance -267 / -267 Intake: IV Fluids 133 / 133 Heparin 25,000 UNIT/500 ML D5W 133 / 133 25,000 unit In 500 ml @ 11 UNIT /KG/HR 19.69 mls/hr IVC .Q24H LESLYE Rx#:[id number] Output: Urine 400 / 400 Other: Weight 89.3 kg Blood Glucose* 243 General: No Apparent Distress HEENT: Atraumatic, Normocephaly, Mucus Membranes Moist Neck: No JVD, Normal carotid pulses Cardiac: Reg Rate and Rhythm, Normal S1 and S2, No Murmur Lungs: Normal Breath Sounds, No Wheeze, Rales, Rhonchi Neuro: Alert and responsive, No focal deficits noted Abdomen: Soft, Non-Tender Skin: Other (right femoral access site healing well. No bleeding or hematoma. Mild ecchymosis.) Musculoskeletal: No Chest Wall Tenderness Extremities: No Clubbing, No Cyanosis, No Edema, Normal Pulses Results 01/04/18 13:45 01/04/18 13:45 Lab Results 01/04/18 01/04/18 13:45 13:45 WBC 10.5 Hgb 10.5 L Hct 33.2 L Plt Count 281 Sodium 140 Potassium 4.5 Chloride 109 H Carbon Dioxide 25 BUN 38 H Creatinine 1.56 H Glucose 259 H Calcium 8.8 Short CBC 01/04/18 Range/Units 13:45 WBC 10.5 (4.3-11.1) K/mcL Hgb 10.5 L (11.5-15.4) g/dL Hct 33.2 L (35.3-44.9) % Plt Count 281 (140-400) K/mcL Neutrophils # 7.3 (1.6-8.9) K/mcL BMP 01/04/18 Range/Units 13:45 Sodium 140 (136-145) mEq/L Potassium 4.5 (3.5-5.1) mEq/L Chloride 109 H (98-107) mEq/L Carbon Dioxide 25 (23-29) mEq/L BUN 38 H (8-23) mg/dL Creatinine 1.56 H (0.60-1.20) mg/dL Glucose 259 H (70-105) mg/dL Calcium 8.8 (8.6-10.3) mg/dL Active Medications Acetaminophen (Tylenol) 650 mg PO Q8H PRN PRN Reason: Mild Pain Stop: 07/06/18 15:26 Last Admin: 01/04/18 15:56 Dose: 650 mg Amlodipine Besylate (Norvasc) 2.5 mg PO DAILY [facility] PRN Reason: Protocol Stop: 07/07/18 09:01 Aspirin (Aspirin) 81 mg PO DAILY [facility] Stop: 07/07/18 09:01 Aspirin (Aspirin Ec) 81 mg PO DAILY [facility] Stop: 07/07/18 09:01 Atorvastatin Calcium (Lipitor) 80 mg PO DAILY [facility] Stop: 07/07/18 09:01 Carvedilol (Coreg) 25 mg PO BIDWM [facility] PRN Reason: Protocol Stop: 07/07/18 08:01 Clopidogrel Bisulfate (Plavix) 75 mg PO DAILY [facility] Stop: 07/07/18 09:01 Gabapentin (Neurontin) 300 mg PO TID [facility] Stop: 07/07/18 09:01 Heparin Sodium (Porcine) (Heparin) 4,000 unit IVP Q6HR PRN PRN Reason: SEE COMMENTS Stop: 07/06/18 13:42 Heparin Sodium (Porcine) (Heparin) 2,000 unit IVP Q6H PRN PRN Reason: SEE COMMENTS Stop: 07/06/18 13:42 Hydralazine HCl (Hydralazine) 10 mg IVP Q6H PRN PRN Reason: SBP>160 OR DBP>110 Stop: 07/06/18 13:46 Last Admin: 01/04/18 13:48 Dose: 10 mg Heparin Sodium/Dextrose (Heparin 25,000 Unit/500 Ml D5w) 25,000 unit in 500 mls @ 19.69 mls/hr IVC .Q24H LESLYE; 11 UNIT/KG/HR PRN Reason: Protocol Stop: 07/06/18 13:46 Last Titration: 01/04/18 16:17 Dose: 0 unit/kg/hr, 0 mls/hr Insulin Detemir (Levemir) 15 unit SQ HS [facility] Stop: 07/06/18 21:01 Last Admin: 01/04/18 22:31 Dose: 15 unit Insulin Human Lispro (Humalog) 0 units SQ TIDAC [facility] PRN Reason: Protocol Stop: 07/06/18 16:31 Last Admin: 01/05/18 08:28 Dose: Not Given Insulin Human Lispro (Humalog) 0 units SQ HS [facility] PRN Reason: Protocol Stop: 07/06/18 21:01 Last Admin: 01/04/18 22:31 Dose: 3 units Isosorbide Mononitrate (Imdur) 60 mg PO DAILY [facility] Stop: 07/07/18 09:01 Lisinopril (Zestril) 10 mg PO DAILY [facility] PRN Reason: Protocol Stop: 07/07/18 09:01 Nitroglycerin (Nitroglycerin) 1 inch TP Q12H [facility] Stop: 07/06/18 22:01 Last Admin: 01/04/18 22:31 Dose: 1 inch Ondansetron HCl (Zofran) 4 mg IVP Q6HR PRN; Protocol PRN Reason: Nausea Stop: 07/06/18 22:01 Last Admin: 01/04/18 22:30 Dose: 4 mg Pantoprazole Sodium (Protonix) 40 mg IVP DAILY [facility] Stop: 07/07/18 09:01 Sertraline HCl (Zoloft) 50 mg PO DAILY [facility] Stop: 07/07/18 09:01 - Imaging and Cardiology Cardiac cath: pending - EKG Interpretation EKG results cardiology: other (12 hr tele AVG HR 94, SR, no significant pauses or arrhythmias) Consult Discharge Plan - Plan Additional Instructions: RISK FACTORS: STOP SMOKING: If you smoke, STOP. Smoking or tobacco use significantly increases your risk of heart disease because nicotine causes the arteries to narrow or constrict. It also causes fats to stick to the artery. Your chances of having a heart attack are greatly increased if you continue to smoke. For more information, call the education line for smoking cessation 2-184-BCOVDLC EAT A LOW FAT/CHOLESTEROL/SODIUM DIET: This diet may help reduce your chances of having a heart attack. LIFTING: Avoid lifting anything more than 10 pounds for 5-7 days Prior to straining, laughing, sneezing and/or coughing, apply manual pressure directly over insertion site. ACTIVITY: You may walk or climb stairs as tolerated You can resume sexual activity as tolerated In general, you are encouraged to engage in a minimum of 30 minutes or more of moderate intensity physical activity, such as brisk walking, daily or at least 3 -4 times weekly BATHING Do not submerge the site into water (bath tub, hot tub, swimming pool) for 1 week. This can be a source for infection into the blood stream. You may shower after 24 hours SITE CARE: After 24 hours, you may remove the dressing and leave the site open to air. Keep the site clean and dry. Clean gently and pat dry. You can expect bruising and tenderness that gradually resolve within a week or two. Return to work as instructed per your physician Resume driving as instructed per physician Keep all scheduled follow up appointments Resume medications as instructed IMPORTANT: If prescribed a Platelet Aggregation Inhibitor such as, Plavix, Brilinta or Effient: Duration of therapy is minimum one year These medications are often used in combination with Aspirin in prevention of future heart attacks Never discontinue unless consult with your Metal Treater STROKE (CVA) Risk factors for a stroke are: Age, cigarette smoking, diabetes, excessive alcohol consumption, family history, high blood pressure, overweight, physical inactivity, prior stroke, heart attack, diagnosis of carotid artery stenosis or other artery disease. Warning signs: Sudden numbness or weakness of the face, arm or leg; especially on one side of the body, sudden confusion, trouble speaking or understanding, sudden trouble seeing in one or both eyes, sudden trouble walking, dizziness, loss of balance or coordination, sudden severe headache with no cause. Call 911 or go to the Emergency Room. CONGESTIVE HEART FAILURE: If you have been diagnosed with Congestive Heart Failure (CHF) and your symptoms return, make an appointment with your physician Weigh yourself daily. Notify your physician if you have a weight gain of two or more pounds in one day or five or more pounds in one week. If you experience any difficulty breathing, please call 911 BLEEDING: Although the risk of bleeding is minimal, it can happen. If you have any bleeding from the site, apply firm pressure above the puncture site for 10-15 minutes. If the bleeding does not stop, continue manual pressure and call 911 Contact your physician if: You develop a fever greater than 101 degrees Fahrenheit Your site becomes reddened or has any drainage You have an increase in pain or burning at the site or if a large knot forms at the site. If you experience chest pain, shortness of breath, dizziness, or extreme tiredness, stop the activity and rest. Please notify your physicians office if you experience any of these symptoms and they are not relieved by rest please call 911! Referrals: Amy Campbell CNP [Primary Care Provider] -
[2018-01-05] MEDS ORDERED: Isosorbide MONOnitrate (24 HR) 60 MG TAB.ER.24H PO SCH (09:31)
[2018-01-05 09:39] VITALS: BP 122/77
--- NOTE | 2018-01-05 10:42 | Discharge Summary ---
Orders not resulted at time of discharge: Pending orders 01/04/18 13:18 CL Cardiac Catheterization [CL] Routine Date of Encounter: 01/05/18 Time of Encounter: 10:39 - Discharge Diagnosis (1) Chest pain Priority: Primary Status: Acute Qualifiers: Chest pain type: unspecified Qualified Code(s): R07.9 - Chest pain, unspecified (2) Hypertension Priority: Secondary Status: Chronic Qualifiers: Hypertension type: essential hypertension Qualified Code(s): I10 - Essential (primary) hypertension (3) Hyperlipemia Priority: Secondary Status: Chronic Qualifiers: Hyperlipidemia type: unspecified Qualified Code(s): E78.5 - Hyperlipidemia , unspecified (4) Essential hypertension Priority: Secondary Status: Chronic (5) Diabetes mellitus Priority: Secondary Status: Chronic Qualifiers: Diabetes mellitus type: type 2 Diabetes mellitus manager terminal insulin use: with mcfp use Diabetes mellitus complication status: with neurologic complications Diabetes mellitus complication detail: with polyneuropathy Qualified Code(s): E11.42 - Type 2 diabetes mellitus with diabetic polyneuropathy; Z79.4 - manager long term care (current) use of insulin (6) CAD (coronary artery disease) Priority: Secondary Status: Chronic Qualifiers: Coronary Disease-Associated Artery/Lesion type: unspecified vessel or lesion type [place] vs. transplanted heart: [place] heart Associated angina: with unstable angina Qualified Code(s): I25.110 - Atherosclerotic heart disease of [place] coronary artery with unstable angina pectoris (7) Depression Priority: Secondary Status: Chronic Qualifiers: Depression Type: unspecified Qualified Code(s): F32.9 - Major depressive disorder, single episode, unspecified (8) History of CVA (cerebrovascular accident) Priority: Secondary Status: Acute (9) CKD (chronic kidney disease) stage 4, GFR 15-29 ml/min Priority: Secondary Status: Acute Hospital course: Ms. Contreras is a 82 year old female with a PMH of arthritis, cancer, CAD with hx CABG x 3 in 2009 and PCI, CVA, DM, HLD, HTN, CKD. She presented initially a few days ago for CP, troponin peaked at 0.24, but pt refused LHC, opted for medical management. She went home and again developed chest pain not relieved by nitro and presented back to ED. She was admitted with cardiology consulted again and had a LHC done on 01/04 which was reportedly with no intervention. No results were up on EMR at time of this dictation. Patient was cleared for d/c per cardiology and signed off. She was discharged on her cardiac meds and told to increase her Imdur to 120 mg daily. - Time Spent with Patient Total time spent providing and/or coordinating discharge services: Greater than 30 minutes - Discharge Medications Home Medications: Atorvastatin Calcium [Lipitor] 80 mg PO DAILY 10/23/16 [History] Carvedilol [Coreg] 25 mg PO BID 10/23/16 [History] Clopidogrel [Plavix] 75 mg PO DAILY 10/23/16 [History] Furosemide [Lasix] 40 mg PO BID 10/23/16 [History] Gabapentin [Neurontin] 300 mg PO TID 10/23/16 [History] Insulin Glargine [Lantus] 50 units SQ HS 10/23/16 [History] Lisinopril [Zestril] 10 mg PO DAILY 10/23/16 [History] Omeprazole [PriLOSEC] 20 mg PO DAILY 10/23/16 [History] amLODIPine [Norvasc] 2.5 mg PO DAILY 10/23/16 [History] glipiZIDE [Glipizide] 10 mg PO BID 10/23/16 [History] Aspirin [Lo-Dose Aspirin EC] 81 mg PO DAILY 12/26/16 [History] Sertraline [Zoloft] 50 mg PO DAILY 12/26/16 [History] Dulaglutide [Trulicity] 0.75 mg SQ QWEEK 01/01/18 [History] Isosorbide MONOnitrate (24 HR) [Imdur] 60 mg PO DAILY #60 tab.er.24h 01/03/18 [ Rx] Allergies/Adverse Reactions: 3 Allergy/AdvReac Type Severity Reaction Status Date / Time codeine Allergy See Verified 01/01/18 12:14 Comments Erythromycin Base Allergy See Verified 01/01/18 12:14 Comments Date of admission: 01/04/18 12:49 Primary care physician: Amy Campbell CNP Consults: 01/04/18 13:10 Consult to Cardiology [CONS] Routine Comment: per hospitalist Consulting Provider: Cardiology No Reason for Consult: NSTEMI Call Completed: Yes 01/05/18 09:31 PT [Consult to Physical Therapy] [CONS] Routine Comment: Evaluate, develop and implement POC Reason for Consult: D/c plannning Does patient have active BEDREST order?: No Is patient medically & hemodynamically stable?: Yes Patient assessed for mobility or mobilized this visit?: No 01/05/18 09:32 Consult to Hairspring Assembler [CONS] Routine Reason for SW Consult: d/c planning--brother requests ECF OT [Consult to Occupational Therapy] [CONS] Routine Comment: Evaluate, develop and implement POC Reason for Consult: D/C planning--brother requests ECF Does patient have active BEDREST order?: No Is patient medically & hemodynamically stable?: Yes Patient assessed for mobility or mobilized this visit?: No 01/05/18 09:33 Consult to Cardiac Rehabilitation-Phase1 [CONS] Routine Comment: Reason for Consult: NSTEMI Call Completed: No - Constitutional Vitals: Temp Pulse Resp BP Pulse Ox 98.0 F 104 18 122/77 91 01/05/18 08:20 01/05/18 08:20 01/05/18 08:20 01/05/18 08:20 01/05/18 08:20 Exam: GEN: NAD CVS: RRR. S1, S2, No m/r/g RESP: CTAB ABD: Soft, NT, ND, +BS EXT: No edema. 2+ DP. No rashes NEURO: Nonfocal - Patient Status Disposition: Home, Self-Care Condition: Fair Overall status at discharge: patient is progressing back to baseline - Discharge Instructions Instructions: Chest Pain (DC) Follow Up With: Amy Campbell CNP [Primary Care Provider] - Additional Instructions: RISK FACTORS: STOP SMOKING: If you smoke, STOP. Smoking or tobacco use significantly increases your risk of heart disease because nicotine causes the arteries to narrow or constrict. It also causes fats to stick to the artery. Your chances of having a heart attack are greatly increased if you continue to smoke. For more information, call the education line for smoking cessation 0-419-GLWEWGZ EAT A LOW FAT/CHOLESTEROL/SODIUM DIET: This diet may help reduce your chances of having a heart attack. LIFTING: Avoid lifting anything more than 10 pounds for 5-7 days Prior to straining, laughing, sneezing and/or coughing, apply manual pressure directly over insertion site. ACTIVITY: You may walk or climb stairs as tolerated You can resume sexual activity as tolerated In general, you are encouraged to engage in a minimum of 30 minutes or more of moderate intensity physical activity, such as brisk walking, daily or at least 3 -4 times weekly BATHING Do not submerge the site into water (bath tub, hot tub, swimming pool) for 1 week. This can be a source for infection into the blood stream. You may shower after 24 hours SITE CARE: After 24 hours, you may remove the dressing and leave the site open to air. Keep the site clean and dry. Clean gently and pat dry. You can expect bruising and tenderness that gradually resolve within a week or two. Return to work as instructed per your physician Resume driving as instructed per physician Keep all scheduled follow up appointments Resume medications as instructed IMPORTANT: If prescribed a Platelet Aggregation Inhibitor such as, Plavix, Brilinta or Effient: Duration of therapy is minimum one year These medications are often used in combination with Aspirin in prevention of future heart attacks Never discontinue unless consult with your Stenographer Secretary STROKE (CVA) Risk factors for a stroke are: Age, cigarette smoking, diabetes, excessive alcohol consumption, family history, high blood pressure, overweight, physical inactivity, prior stroke, heart attack, diagnosis of carotid artery stenosis or other artery disease. Warning signs: Sudden numbness or weakness of the face, arm or leg; especially on one side of the body, sudden confusion, trouble speaking or understanding, sudden trouble seeing in one or both eyes, sudden trouble walking, dizziness, loss of balance or coordination, sudden severe headache with no cause. Call 911 or go to the Emergency Room. CONGESTIVE HEART FAILURE: If you have been diagnosed with Congestive Heart Failure (CHF) and your symptoms return, make an appointment with your physician Weigh yourself daily. Notify your physician if you have a weight gain of two or more pounds in one day or five or more pounds in one week. If you experience any difficulty breathing, please call 911 BLEEDING: Although the risk of bleeding is minimal, it can happen. If you have any bleeding from the site, apply firm pressure above the puncture site for 10-15 minutes. If the bleeding does not stop, continue manual pressure and call 911 Contact your physician if: You develop a fever greater than 101 degrees Fahrenheit Your site becomes reddened or has any drainage You have an increase in pain or burning at the site or if a large knot forms at the site. If you experience chest pain, shortness of breath, dizziness, or extreme tiredness, stop the activity and rest. Please notify your physicians office if you experience any of these symptoms and they are not relieved by rest please call 911! - Diet and Activity Activity: increase activity as tolerated Diet: diabetic diet, low salt diet
[2018-01-05] MEDS: Nitroglycerin 1 INCH/GM PACKET TP SCH (11:11)
[2018-01-05] MEDS ORDERED: *HR* Heparin 5,000 UNIT/ML VIAL SQ SCH (18:00)
--- NOTE | 2018-01-05 19:43 | Invasive Diagnostic Lab Proc ---
Name: Mar Contreras Date of Study: 01/04/2018 Date: 1935 Ht: 63.4in Medical Record#: [id number] Age: 82 Wt: 197.31lb Gender: Female BSA: 1.93 Order #: [id number] BMI: 34.53 Physicians Procedure Physician: Misha Coleman MD Referring MD: Referring MD: Staff Name Position Time In Kadeem Figueroa RT (R) Scrub 04:28 PM Joy Hauser RT (R) Monitor 04:28 PM Juvenal Red RN Time Study Observer 04:28 PM Indications Indication Non-Stemi Procedures Performed Procedure L HRT ART/GRFT ANGIO Pre-Procedure Checklist Informed consent is complete signed and on chart. H&P is on chart. ID band is on and ID verified with patient. Patient NPO for procedure The procedure was described for the patient and questions were answered. Blood Pressure: 171/98 ECG is on chart. Rhythm: NSR Plan of Care Patient will tolerate the procedure without complications. Adequate level of comfort will be maintained. Hemodynamics will remain stable Patient will recover from procedure without complications. Respiratory function will be maintained. Cardiac rhythm will remain stable. Patient temperature will be maintained. Patient and/or family have verbalized understanding of the procedure. Patient Education Chief Complaint/Reason for Test: Cardiac Cath Developmental Category: Geriatric (65+ years) Developmentally Appropriate for Age: Yes Learning Barriers: None Education Needs: Procedure Education Method: Verbal Information Taught: Cardiac Cath Educational Evaluation: Able to repeat information Intravenous Access Time IV Size Location DC'd Fluid/Drip Rate Units RN 05:34 PM Started with 22g 1 " Lt Antecubital Malka Salazar RN 20g 1 1/4" Patent On Arrival Rt Wrist No 0.9NaCl 25 ml/hr Malka Salazar RN Allergies Erythromycin codeine Erythromycin Base CODIENE ESS Vital Signs Time BP (mmHg) HR (bpm) O2 Sat. RR (bpm) LOC 04:34 PM / % 4 = Oriented but drowsy 04:34 PM / % 5 = Fully awake and oriented or at pre-proc level 04:50 PM / % 5 = Fully awake and oriented or at pre-proc level 05:05 PM / % 4 = Oriented but drowsy 05:20 PM / % 4 = Oriented but drowsy 04:45 PM 171 / 98 86 93 % 24 04:50 PM 166 / 93 86 93 % 24 04:55 PM 164 / 93 83 93 % 21 05:00 PM 160 / 100 82 95 % 15 05:05 PM 157 / 86 78 94 % 21 05:11 PM 102 / 61 75 90 % 10 05:15 PM 119 / 77 72 97 % 6 05:20 PM 130 / 66 68 98 % 11 05:25 PM 132 / 71 72 98 % 13 05:30 PM 118 / 74 84 98 % 22 Procedural Medications Time Medication Dose Units Method Given By 04:47 PM Oxygen 2 L/min nasal cannula Juvenal Red RN 04:38 PM Versed 1 mg Intravenous Juvenal Red RN 04:38 PM Fentanyl 50 mcg Intravenous Juvenal Red RN 05:01 PM Lidocaine 2% 10 ml Subcutaneous Misha Coleman MD 05:04 PM Versed 1 mg Intravenous Juvenal Red RN 05:05 PM Fentanyl 50 mcg Intravenous Juvenal Red RN 05:06 PM Lidocaine 2% 9 ml Subcutaneous Misha Coleman MD 05:10 PM Oxygen 15 L/min Oxy Mask Juvenal Red RN ASA Classification: CLASS II- Mild systemic disease (i.e. well-controlled diabetes, hypertension, asthma, cigarette smoking) Olaf Score Preprocedure Postprocedure Activity 2- Moves 4 extremities sustained head lift Activity 2- Moves 4 extremities sustained head lift Circulation 2- SBP +/= 20 points of pre-anesthetic level Circulation 2- SBP +/= 20 points of pre-anesthetic level Consciousness 2- Awake and alert oriented x 3 Consciousness 2- Awake and alert oriented x 3 O2 Saturation 2- Able to maintain O2 satruation of 92% on room air O2 Saturation 2- Able to maintain O2 satruation of 92% on room air Respiratory 2- Able to deep breathe and cough well Respiratory 2- Able to deep breathe and cough well Total Score 10 Total Score 10 Contrast Agent: Isovue Diagnostic Contrast: 86 ml Total Contrast: 86 ml Fluoro Dose: 8760 mGy Activated Clotting Time Time Seconds to Clot 05:25 PM 145 Procedure Log Time Note Enter By 04:28 PM CathStat 04:28 PM Pt arrived to laborer pole crew 2 at 16:28 [facility] 04:28 PM Kadeem Figueroa RT (R) Position: Scrub Time in: 16:28 [facility] 04:28 PM Joy Hauser RT (R) Position: Monitor Time in: 16:28 04:28 PM Juvenal Red RN Position: Time Study Observer Time in: 16:28 :28 PM Patient charges- Angio tray pack, Navilyst 3mm J, Pulse Oximetry and ACIST tubing and transducer dspell:28 PM IV Supplies used: J loop Angio Cath. :28 PM Case Delayed No, Inpatient :34 PM Case Start 04:34 PM Physician arrived 16:34 :34 PM Meet and greet completed :34 PM Sign in performed according to hospital policy. :34 PM Procedure start 16:34 34 PM Time: 16:34 Patient comfortable and pain free: Yes 34 PM Time: 16:34LOC: 4 = [facility] 04:38 PM Time: 16:38 Fentanyl 50 mcg Intravenous Given by Juvenal Red RN [facility] :38 PM Time: 16:38 Oxygen on at 2 L/min per nasal cannula by Juvenal Red RN [facility] :38 PM Time: 16:38 Versed 1 mg Intravenous Given by Juvenal Red RN [facility] 04:44 PM Vitals capture started with the following parameters, Patient=Adult, Interval=5 min, Initial Nuwnddyy=188 mmHg, Deflation Rate=5 mmHg, Cuff placed on Right Arm 04:45 PM HR=86 bpm, INAV=319/98 mmhg, SpO2=93.0 %, Resp=24 B/min, Comment=Sinus 04:50 PM Time: 16:34LOC: 5 = Fully awake and oriented or at pre-proc level dspell:50 PM Time: 16:34 Patient comfortable and pain free: Yes dspell 04:50 PM HR=86 bpm, PRJH=113/93 mmhg, SpO2=93.0 %, Resp=24 B/min, Comment=Sinus 04:55 PM HR=83 bpm, XBLV=535/93 mmhg, SpO2=93.0 %, Resp=21 B/min, Comment=Sinus 05:00 PM HR=82 bpm, DIUR=450/100 mmhg, SpO2=95.0 %, Resp=15 B/min, Comment=Sinus 05:01 PM Time out performed according to hospital policy : PM Clinical Presentation: Non-STEMI : PM Time: 17:01 10 ml Lidocaine 2% to right groin Subcutaneous Given by Misha Coleman MD 05:02 PM Micro-Introducer Kit utilized for sheath placement :03 PM Pressure channel 1 zeroed. 05:04 PM Access obtained by percutaneous puncture. 4Fr 11cm Cordis Mehreen sheath placed in right Femoral vein. [id number] Fluids hooked up to sheath PM Time: 17:04 Versed 1 mg Intravenous Given by Juvenal Red RN : PM Time: 17:05 Fentanyl 50 mcg Intravenous Given by [facility] PM Time: 16:50 Patient comfortable and pain free: Yes : PM HR=78 bpm, XIZZ=847/86 mmhg, SpO2=94.0 %, Resp=21 B/min, Comment=Sinus : PM Time: 16:50LOC: 5 = Fully awake and oriented or at pre-proc level 07 PM Time: 17:06 9 ml Lidocaine 2% to right groin Subcutaneous Given by Misha Coleman MD :08 PM injected 5 cc of contrast right groin 05:10 PM sats dropped 05:10 PM Time: 17:10 Oxygen on at 15 L/min per Oxy Mask by Juvenal Red RN :11 PM Oral airway inserted : PM HR=75 bpm, NALV=187/61 mmhg, SpO2=90.0 %, Resp=10 B/min, Comment=Sinus 05:11 PM Access obtained by percutaneous puncture. 6Fr 10cm Terumo Waldo sheath placed in right Femoral artery. [id number] 05:11 PM 5Fr FR 4 catheter inserted over the wire DNC 05:11 PM 0.035 145cm Cordis 3mmJ wire [id number] 05:12 PM Recorded Pressure: Ao, HR=73, Condition=Condition 1 (Aorta) Ao 103/74/88 05:12 PM RCA angiography performed in multiple views. dspellman 05:13 PM SVG to the DIAG angio performed in multiple views. dspell 05:14 PM SVG to the 1st OM angio performed in multiple views. dspell 05:15 PM HR=72 bpm, PZTK=259/77 mmhg, SpO2=97.0 %, Resp=6 B/min, Comment=Sinus 05:17 PM Left SUKH to the LAD angio performed in multiple views. dspell 05:17 PM Catheter removed dspell 05:17 PM 5Fr FL 4 catheter inserted over the wire [facility] dspell 05:18 PM LCA angiography performed in multiple views. dspell 05:19 PM Catheter removed dspell 05:20 PM HR=68 bpm, GSQM=916/66 mmhg, SpO2=98.0 %, Resp=11 B/min, Comment=Sinus 05:20 PM Time: 17:05LOC: 4 = Oriented but drowsy dspell 05:20 PM Time: 17:05 Patient comfortable and pain free: Yes ell 05:21 PM Recorded Pressure: LV, HR=74, Condition=Condition 1 (Left Ventricle) LV 140/23/33 05:21 PM Recorded Pressure: LV, Ao, HR=75, Condition=Condition 1 (Left Ventricle) LV 136/12/20, (Aorta) Ao 134/69/96 05:22 PM Coronary Dominance: right 05:22 PM ACT drawn dspell 05:23 PM 5Fr Pigtail catheter inserted over the wire [facility] dsp 05:23 PM Catheter selectively placed in left ventricle dspell 05:23 PM Pressures recorded ell 05:23 PM Catheter removed dspell 05:24 PM Procedure completed at 17:24 01/04/2018 dspell 05:24 PM Isovue 370 - 200ml,1 Bottle(s) used. dspell 05:25 PM Sign out completed: Radiation Dose 734.59 mGy, 8760.03 cGy/cm2 Fluoro Time: 5.6 Isovue 370 - 200ml contrast 86 ml given by Misha Coleman MD. Complications: NoneCardiac Rehab Consult needed: NoConfirmed administered medications: Yes dspell 05:25 PM Did you address CHITO flow and Dominance? Yes dspell 05:25 PM HR=72 bpm, WEOQ=504/71 mmhg, SpO2=98.0 %, Resp=13 B/min, Comment=Sinus 05:25 PM At 17:25 the ACT was 145 seconds. dspell 05:25 PM Arterial sheath pulled, Mynx closure device used and was Successful S/N [id number]. dspell 05:25 PM Estimated Blood Loss: minimal dspell 05:26 PM Post ECG NSR dspell 05:26 PM Post Blood Pressure 132/71 dspellman 05:26 PM Information taught Cardiac Cath and Mynx dspell 05:26 PM Education needs Procedure, Plan of Care, and Responsibilities of Patient in Care dspell 05:27 PM Education needs Procedure, Plan of Care, and Responsibilities of Patient in Care dspell 05:27 PM Learning barriers :None dspell 05:27 PM Education Methods Verbal dspell 05:27 PM Education evaluation Able to repeat information dspell 05:29 PM Site status No bleeding/hematoma - Rt Groin as reported by Kadeem Figueroa RT (R) at 17:29 dspell 05:29 PM Delay to floor No dspell 05:29 PM Complications: None dspell 05:30 PM HR=84 bpm, VCDV=001/74 mmhg, SpO2=98.0 %, Resp=22 B/min, Comment=Sinus 05:33 PM Starting new IV dspellman 05:34 PM Lesion found in Mid LAD. Pre Stenosis: 100 Pre CHITO Flow: dspellman 05:34 PM Lesion found in Distal LAD. Pre Stenosis: 80 Pre CHITO Flow: dspellman 05:36 PM Time: 17:20 Patient comfortable and pain free: Yes dspellman 05:36 PM Time: 17:20LOC: 4 = Oriented but drowsy dspellman 05:38 PM Lesion found in 1st Diagonal. Pre Stenosis: 99 Pre CHITO Flow: dspellman 05:38 PM Lesion found in Proximal Circumflex. Pre Stenosis: 60 Pre CHITO Flow: dspellman 05:42 PM Lesion found in Mid Circumflex. Pre Stenosis: 99 Pre CHITO Flow: dspellman 05:42 PM Lesion found in 1st Marginal. Pre Stenosis: 99 Pre CHITO Flow: dspellman 05:43 PM Site status No bleeding/hematoma - Rt Groin as reported by Kadeem Figueroa RT (R) at 17:43 dspellman 05:43 PM Opsite applied dspell 05:44 PM Venous sheath pulled using manual compression and V+ Pad for 10 minutes by Kadeem Figueroa RT (R) prema 05:44 PM Report given to Artis VARGAS Pt taken to 2A Room #43. 17:44 prema 05:44 PM Patient out of room: 17:44 prema 05:44 PM Family placed in no family available. prema Complications Complication None None Hemodynamics Pressures Site Systolic/A Wave Diastolic/V Wave Mean AO 103 74 88 LV 140 23 33 LV 136 12 20 AO 134 69 96 Post Procedure Information Blood Pressure: 132/71 mmHg Rhythm: NSR Post procedural instructions were given Closure Device Time Device Success/Fail 01/04/2018 5:30:00 PM MynxGrip Successful Site Checks Time Location Status Staff Sheath In? Note 05:29 PM Rt Groin Arterial No bleeding/hematoma Kadeem Figueroa RT (R) No 05:43 PM Rt Groin Venous No bleeding/hematoma Kadeem Figueroa RT (R) No Pulses Time Site Pre-Procedure Post-Procedure Note 01/04/2018 5:48:00 PM Bilateral DP & PT 1+ Updated by Joy Hauser RT (R) on 01/04/2018 5:59:58 PM RT Javi electronically signed on 01/04/2018 6:01:02 PM with status of Final
== END 2018-01-05 11:45 | disposition home or self-care (01) ==
LOC: 2ANU
PROVIDERS: ADMIT Internal Medicine; ATTEND Internal Medicine

== ENCOUNTER 2018-01-27 02:30 | Observation (INO) ==
[2018-01-27] MEDS ORDERED: Naloxone 0.4 MG/ML INJ IVP PRN (06:17)
[2018-01-27] MEDS ORDERED: *HR* Dextrose 50 % in Water (Syg) 50 ML SYRINGE IVP PRN (06:22)
[2018-01-27] MEDS ORDERED: Dextrose Gel 15 GM/37.5 ML TUBE PO PRN ×2 (06:22)
[2018-01-27] MEDS ORDERED: D5% in Water 1,000 ML IVC PRN (06:22)
--- NOTE | 2018-01-27 06:36 | Internal Med History&Physical ---
Date of Encounter: 01/27/18 Time of Encounter: 05:45 Internal Medicine - H&P: HPI Chief complaint: Weakness Admitted From: Home Plans for Post Hospital Care: Home History of present illness: Ms. Contreras is a 82 year old female Patient presented to the [facility] emergency room with concerns of possible stroke. She says that about 5 hours ago patient could not see, could not talk, and could not dial her phone to call for help. Eventually she was able to get a hold of her neighbor who then called the ambulance. She was taken to [facility] emergency room and stroke workup was called. She was noted by the ER staff to be globally weak and confused. Head CT was performed which resulted with no acute intracranial abnormality. Chest x-ray showed left pleural effusion CHF. Her symptoms improved, and have since now resolved. The rest of her workup including CBC, BMP troponins were all at her baseline. Urinalysis was negative for infection. EKG did not show any acute findings. Apparently patient has been to the ER several times last few days for various complaints, her family is concerned that she is no longer able to take care of herself at home. Patient lives alone. She has multiple family members in town, but there unable to care for her. She was recently here at [facility] for possible heart attack and had elevated troponins. She was taken to catheter lab but no intervention was done to hypotension in the Mainframe Programmer Analyst. Patient refused tertiary transfer despite interventionalists recommendation. She did transferred to an ECF, but patient stated that she hated it there and left promptly. Palliative care met with the patient during her previous hospitalization and recommended ECF. Currently she denies pain but states he feels weak. She is sad that she is unable to care for herself at home and wishes she could still live by herself but she knows that she is no longer capable of doing that. She denies chest pain, abdominal pain, nausea, vomiting, diarrhea, constipation, vision changes. She is cooperative and in no acute distress. Past Med Surg Social Fam HX - Past Medical History Medical history: arthritis, cancer, CHF, coronary artery disease, CVA, diabetes , GERD, glaucoma, hyperlipidemia, hypertension, myocardial infarction, renal disease, other Additional medical history: uterus cancer. 7 strokes Psychiatric history: depression - Past Surgical History Surgical History: angioplasty/stent, carotid endarterectomy, cholecystectomy, coronary bypass (CABG), hysterectomy, orthopedic, other, other Additional surgical history: 2 stents, carotid endarterectomy - Social History Smoking Status: Former smoker Smokeless Tobacco Status: No Alcohol use: none Drug use: none - Family History Mother Family Member Ethnicity: Non- Living Status: Hx Family Cancer: Yes Hx Family Endocrine Disorder: Yes (DM) Father Family Member Ethnicity: Non- Living Status: Hx Family Cardiac Disorders: Yes (CO, HD) Brother Family Member Ethnicity: Non- Living Status: Hx Family Cardiac Disorders: Yes (HD) Hx Family Cancer: Yes Sister Family Member Ethnicity: Non- Living Status: Still Living Hx Family Endocrine Disorder: Yes (DM) Internal Medicine - H&P: Meds Atorvastatin Calcium [Lipitor] 80 mg PO DAILY 10/23/16 [History] Carvedilol [Coreg] 25 mg PO BID 10/23/16 [History] Clopidogrel [Plavix] 75 mg PO DAILY 10/23/16 [History] Furosemide [Lasix] 40 mg PO BID 10/23/16 [History] Gabapentin [Neurontin] 300 mg PO TID 10/23/16 [History] Insulin Glargine [Lantus] 50 units SQ HS 10/23/16 [History] Lisinopril [Zestril] 10 mg PO DAILY 10/23/16 [History] Omeprazole [PriLOSEC] 20 mg PO DAILY 10/23/16 [History] amLODIPine [Norvasc] 2.5 mg PO DAILY 10/23/16 [History] glipiZIDE [Glipizide] 10 mg PO BID 10/23/16 [History] Aspirin [Lo-Dose Aspirin EC] 81 mg PO DAILY 12/26/16 [History] Sertraline [Zoloft] 50 mg PO DAILY 12/26/16 [History] Isosorbide MONOnitrate (24 HR) [Imdur] 30 mg PO DAILY 01/27/18 [History] Lactobacillus Acidophilus [Acidophilus Lactobacilli] 2 each PO QID 01/27/18 [ History] Nystatin Cream [Mycostatin Cream] 1 appl TP TID 01/27/18 [History] 3 Allergy/AdvReac Type Severity Reaction Status Date / Time codeine Allergy See Verified 01/01/18 12:14 Comments Erythromycin Base Allergy See Verified 01/01/18 12:14 Comments All Systems PM: A 10-system review of systems was performed and is negative for pertinent findings except as documented above in the HPI. - Constitutional Vitals: Temp Pulse Resp BP Pulse Ox 98.2 F 67 16 124/77 94 01/27/18 05:29 01/27/18 05:29 01/27/18 05:29 01/27/18 05:29 01/27/18 05:29 General appearance: Present: cooperative, A&O X 3, pleasant, no acute distress, answers questions appropriately - Head Head exam: Present: normal inspection - Eye Eye exam: Present: EOMI, normal appearance - Neck Neck exam general surgery: Present: full ROM - Respiratory Respiratory exam: Present: decreased breath sounds, rales. Absent: wheezes Additional comments: Crackles bilaterally and decreased breath sounds at the lung bases - Cardiovascular Cardiovascular exam: Present: RRR. Absent: diastolic murmur, systolic murmur - GI/Abdominal GI/Abdominal exam: Present: normal bowel sounds, soft. Absent: tenderness - Extremities Exam Extremities exam: Present: warm, radial pulses palpable and symmetrical. Absent : calf tenderness, pedal edema, tenderness Additional comments: Right ankle surgery, with decreased flexion and extension ability - Neurological Exam Neurological exam: Present: no focal deficits, strengths equal and symetr throughout. Absent: motor sensory deficit, facial droop, speech deficit - Psychiatric Psychiatric exam: Present: depressed - Skin Skin exam: Present: dry, normal color, warm - Assessment and plan (1) Generalized weakness Current Visit: No Status: Acute Assessment and plan: Patient continues to feel weak, was here in the hospital 3 weeks ago with similar complaints, but at that time she had just had an NSTEMI. She was discharged and sent to an ECF, the patient left early because she hated living there. Family unable to take care of patient at home, and patient is a danger to self without help. Physical therapy and occupational therapy recommended SNF placement at patient's previous admission. Initial thought of possible stroke less likely as patient's symptoms not typical of stroke. At this time patient does not have any lateralizing stroke like symptoms on exam, nor did she seem to present that way to the ER at [facility] earlier. PT OT consult (2) Diastolic CHF, chronic Current Visit: No Status: Chronic Assessment and plan: Patient's exam shows crackles bilaterally in the lungs with decreased breath sounds at the lung bases. Continue Lasix 40 mg twice a day Pulse oximeter Supplemental oxygen as needed Continue to monitor (3) Type 2 diabetes mellitus Current Visit: No Status: Acute Assessment and plan: Patient on insulin at home as well as glipizide. Monitor sugars before meals at bedtime Sinus scale insulin as needed Diabetic diet Qualifiers: Diabetes mellitus fdc insulin use: unspecified intermediate project manager insulin use status Diabetes mellitus complication status: with kidney complications Diabetes mellitus complication detail: with chronic kidney disease Chronic kidney disease stage: stage 3 (moderate) Qualified Code(s): E11.22 - Type 2 diabetes mellitus with diabetic chronic kidney disease; N18.3 - Chronic kidney disease, stage 3 (moderate) (4) DVT prophylaxis Current Visit: No Status: Acute Assessment and plan: SCDs - Time Spent With Patient Total time spent is greater than 50% in coordination of care (as documented) at patient's floor/unit and/or counseling patient: Greater than 35 minutes
[2018-01-27 07:03] LABS: Hematocrit 32.4 % (35.3-44.9); Hemoglobin 9.6 g/dL (11.5-15.4); Mean Corpuscular HGB Conc 29.6 g/dL (31.6-35.5); Mean Corpuscular Hemoglobin 26.9 pg (28.0-33.3); Mean Corpuscular Volume 90.8 fL (83.0-100.0); Mean Platelet Volume 11.4 fL (9.4-12.4); Platelet Count 160 K/mcL (140-400); Red Blood Count 3.57 M/mcL (3.82-4.97); Red Cell Distribution Width 16.3 % (11.5-14.5)
[2018-01-27 07:23] LABS: Calcium 8.1 mg/dL (8.6-10.3); Potassium 3.7 mEq/L (3.5-5.1)
[2018-01-27] MEDS: Insulin LISPRO 300 UNITS/3 ML VIAL SQ SCH ×3 (08:06→17:00)
[2018-01-27] MEDS: Aspirin Enteric Coated 81 MG Tablet PO SCH (08:08)
[2018-01-27] MEDS: Furosemide 40 MG TABLET PO SCH ×2 (08:08→15:26)
[2018-01-27] MEDS: Gabapentin 300 MG CAPSULE PO SCH ×3 (08:08→20:55)
--- NOTE | 2018-01-27 12:51 | Event Note ---
Date of Encounter: 01/27/18 Time of Encounter: 12:51 Patient is feeling better at this time. No new complaints. Awaiting criminal justice social worker consult for placement. We will continue to monitor vital signs. Fall precautions.
[2018-01-27] MEDS: Ipratropium/Albuterol Neb 3 ML IH PRN (20:33)
[2018-01-27] MEDS ORDERED: Insulin LISPRO 300 UNITS/3 ML VIAL SQ SCH (21:00)
[2018-01-28] MEDS: Ipratropium/Albuterol Neb 3 ML IH PRN (01:06)
[2018-01-28] MEDS: Ipratropium/Albuterol Neb 3 ML IH SCH ×3 (03:55→11:19)
[2018-01-28] MEDS: Insulin LISPRO 300 UNITS/3 ML VIAL SQ SCH ×2 (07:47→11:50)
[2018-01-28] MEDS: Furosemide 40 MG TABLET PO SCH (07:59)
[2018-01-28] MEDS: Gabapentin 300 MG CAPSULE PO SCH (07:59)
[2018-01-28] MEDS: Aspirin Enteric Coated 81 MG Tablet PO SCH (07:59)
[2018-01-28 11:34] VITALS: BP 138/95
--- NOTE | 2018-01-28 13:49 | Discharge Summary ---
- NOTES TO OUTPATIENT PROVIDER Notes to Outpatient Provider: Patient was hospitalized here after presenting to the ER initially with complaints of possible stroke as she cannot talk or dial on her phone to call for help. However the time she came to the ER she did not have any symptoms of stroke. Patient did have generalized weakness and was hospitalized for evaluation by physical therapy. She had previously been to a skilled rehabilitation. However she left the police because she did not like staying there. Patient has apparently already agreed to be admitted to hospice and had signed necessary paperwork on Sunday. This was confirmed by the social director and patient will be discharged home today on hospice. Date of Encounter: 01/28/18 Time of Encounter: 13:47 - Discharge Diagnosis (1) Generalized weakness Priority: Primary Status: Acute (2) Diastolic CHF, chronic Priority: Secondary Status: Chronic (3) DVT prophylaxis Priority: Secondary Status: Acute (4) Type 2 diabetes mellitus Priority: Secondary Status: Chronic Qualifiers: Diabetes mellitus nursing home insulin use: unspecified nursing home insulin use status Diabetes mellitus complication status: with kidney complications Diabetes mellitus complication detail: with chronic kidney disease Chronic kidney disease stage: stage 3 (moderate) Qualified Code(s): E11.22 - Type 2 diabetes mellitus with diabetic chronic kidney disease; N18.3 - Chronic kidney disease, stage 3 (moderate) Hospital course: Ms. Contreras is a 82 year old female Patient with history of coronary artery disease, hypertension, hyperlipidemia, diabetes, diastolic congestive heart failure was hospitalized here after presenting to the ER initially with complaints of possible stroke as she cannot talk or dial on her phone to call for help. However the time she came to the ER she did not have any symptoms of stroke. Patient did have generalized weakness and was hospitalized for evaluation by physical therapy. She had previously been to a skilled rehabilitation. However she left the police because she did not like staying there. Patient has apparently already agreed to be admitted to hospice and had signed necessary paperwork on Sunday. This was confirmed by the social director and patient will be discharged home today on hospice. Discharge discussed with: patient, nurse, social work, case management - Time Spent with Patient Total time spent providing and/or coordinating discharge services: Less than 30 minutes (20 min) - Discharge Medications Prescriptions: Albuterol Sulfate [Albuterol Inhaler] 2 puff IH Q4HR PRN #1 inhaler PRN Reason: Shortness Of Breath Home Medications: Atorvastatin Calcium [Lipitor] 80 mg PO DAILY 10/23/16 [History] Carvedilol [Coreg] 25 mg PO BID 10/23/16 [History] Clopidogrel [Plavix] 75 mg PO DAILY 10/23/16 [History] Furosemide [Lasix] 40 mg PO BID 10/23/16 [History] Gabapentin [Neurontin] 300 mg PO TID 10/23/16 [History] Insulin Glargine [Lantus] 50 units SQ HS 10/23/16 [History] Lisinopril [Zestril] 10 mg PO DAILY 10/23/16 [History] Omeprazole [PriLOSEC] 20 mg PO DAILY 10/23/16 [History] amLODIPine [Norvasc] 2.5 mg PO DAILY 10/23/16 [History] glipiZIDE [Glipizide] 10 mg PO BID 10/23/16 [History] Aspirin [Lo-Dose Aspirin EC] 81 mg PO DAILY 12/26/16 [History] Sertraline [Zoloft] 50 mg PO DAILY 12/26/16 [History] Isosorbide MONOnitrate (24 HR) [Imdur] 30 mg PO DAILY 01/27/18 [History] Lactobacillus Acidophilus [Acidophilus Lactobacilli] 2 each PO QID 01/27/18 [ History] Nystatin Cream [Mycostatin Cream] 1 appl TP TID 01/27/18 [History] Albuterol Sulfate [Albuterol Inhaler] 2 puff IH Q4HR PRN #1 inhaler 01/28/18 [Rx ] Allergies/Adverse Reactions: 3 Allergy/AdvReac Type Severity Reaction Status Date / Time codeine Allergy See Verified 01/01/18 12:14 Comments Erythromycin Base Allergy See Verified 01/01/18 12:14 Comments Date of admission: 01/27/18 05:09 Primary care physician: Amy Campbell CNP Consults: 01/27/18 06:19 Consult to Occupational Therapy [CONS] Routine Comment: Evaluate, develop and implement POC Reason for Consult: Patient has been having difficulty getting around her house and dialing phones. Recently taken to the emergency room for possible stroke. Continues to feel weak Does patient have active BEDREST order?: No Is patient medically & hemodynamically stable?: Yes Consult to Physical Therapy [CONS] Routine Comment: Evaluate, develop and implement POC Reason for Consult: Patient has been feeling weak for the last several days, has been to the ER multiple times for various complaints. Does patient have active BEDREST order?: No Is patient medically & hemodynamically stable?: Yes 01/28/18 08:29 Consult to D[employer] [employer]er [CONS] Routine Reason for SW Consult: Discharge plan Discharging clinician: Molly Silva Anticipated date of discharge: 01/28/18 - Constitutional Vitals: Temp Pulse Resp BP Pulse Ox 97.9 F 81 16 138/95 100 01/28/18 11:32 01/28/18 11:32 01/28/18 11:32 01/28/18 11:32 01/28/18 11:32 General appearance: Present: cooperative, A&O X 3, pleasant, no acute distress, answers questions appropriately Exam: . - Neck Neck exam general surgery: Present: supple, trachea midline. Absent: lymphadenopathy - Respiratory Respiratory exam: Present: CTAB. Absent: accessory muscle use, rales, rhonchi, wheezes - Cardiovascular Cardiovascular exam: Present: RRR, +S1, +S2. Absent: diastolic murmur, gallop, rubs, systolic murmur - GI/Abdominal GI/Abdominal exam: Present: normal bowel sounds, soft, no peritoneal signs. Absent: distended, tenderness - Extremities Exam Extremities exam: Present: warm, radial pulses palpable and symmetrical. Absent : calf tenderness, cyanotic, pedal edema - Patient Status Disposition: Hospice - Home Condition: Good Functional capacity at discharge: uses cane/walker Overall status at discharge: patient is progressing back to baseline - Discharge Instructions Follow Up With: Amy Campbell CNP [Primary Care Provider] - 02/04/18 10:15 am (Please follow up as schedule...) - Diet and Activity Activity: increase activity as tolerated Diet: advance to your usual diet
--- NOTE | 2018-01-28 13:52 | Physician Discharge Referral ---
Home Health/Hosp Referral Info Transfer to: Hospice Provider in Charge Post Discharge: [facility] - Diagnosis (1) Generalized weakness Priority: Primary Status: Acute (2) Diastolic CHF, chronic Priority: Secondary Status: Chronic (3) DVT prophylaxis Priority: Secondary Status: Acute (4) Type 2 diabetes mellitus Priority: Secondary Status: Chronic - Respiratory Orders Oxygen / L per min (keep sats >88%) Smoking Cessation: Smoking cessation has been advised. For more information, call the [place] Tobacco Quit Line at 8-935-CADT-NOW. - Diet/Nutrition Diet/Nutrition Orders: Regular - Activity Activity Orders: Walker - Services Needed Following services are medically necessary services: Nursing, Home Health Aide, Physical Therapy, Occupational Therapy - Transfer Medications Home Medications: Atorvastatin Calcium [Lipitor] 80 mg PO DAILY 10/23/16 [History] Carvedilol [Coreg] 25 mg PO BID 10/23/16 [History] Clopidogrel [Plavix] 75 mg PO DAILY 10/23/16 [History] Furosemide [Lasix] 40 mg PO BID 10/23/16 [History] Gabapentin [Neurontin] 300 mg PO TID 10/23/16 [History] Insulin Glargine [Lantus] 50 units SQ HS 10/23/16 [History] Lisinopril [Zestril] 10 mg PO DAILY 10/23/16 [History] Omeprazole [PriLOSEC] 20 mg PO DAILY 10/23/16 [History] amLODIPine [Norvasc] 2.5 mg PO DAILY 10/23/16 [History] glipiZIDE [Glipizide] 10 mg PO BID 10/23/16 [History] Aspirin [Lo-Dose Aspirin EC] 81 mg PO DAILY 12/26/16 [History] Sertraline [Zoloft] 50 mg PO DAILY 12/26/16 [History] Isosorbide MONOnitrate (24 HR) [Imdur] 30 mg PO DAILY 01/27/18 [History] Lactobacillus Acidophilus [Acidophilus Lactobacilli] 2 each PO QID 01/27/18 [ History] Nystatin Cream [Mycostatin Cream] 1 appl TP TID 01/27/18 [History] Allergies/Adverse Reactions: 3 Allergy/AdvReac Type Severity Reaction Status Date / Time codeine Allergy See Verified 01/01/18 12:14 Comments Erythromycin Base Allergy See Verified 01/01/18 12:14 Comments Certification: Further, I certify that my clinical findings support that this patient is homebound (i.e. absences from home require considerable and taxing effort and are for medical reasons or gnosticism services or infrequently or short duration when for other reasons) because: Homebound Reason: Patient requires assistance of a person or device to safely leave home (Patient is on hospice) Attestation: My signature below is to certify that this patient is under my care and that I, or nurse practitioner, or a physician's assistant press operator offset working with me, has a face-to -face encounter with this patient.
== END 2018-01-28 15:23 | disposition hospice, home (50) ==
LOC: 2ANU
PROVIDERS: ADMIT Internal Medicine; ATTEND Internal Medicine